=== PATIENT | male | born 1980 | race Hispanic/Latino ===

== ENCOUNTER 2017-07-05 15:01 | Emergency (ER) | payer SELFPAY ==
[~2017-07-05] VITALS: Ht 160 cm; Wt 106.0 kg
[~2017-07-05 15:01] MED LIST: NO HOME MEDS
[2017-07-05 16:19] LABS: ALBUMIN 4.5 g/dL (3.2-5.0); ALKALINE PHOSPHATASE 91 u/l (38-126); ANION GAP 17 (6-22 (CALC)); BILIRUBIN, TOTAL 0.3 mg/dL (0.0-1.4); BUN 14 mg/dL (9-20); BUN/CREATININE RATIO 13 (12-20 (CALC)); CARBON DIOXIDE 24 mmol/l (22-30); CHLORIDE 108 mmol/l (95-108); CREATININE 1.1 mg/dL (0.7-1.3); GFR > 60 ML/MIN (>=60 (CALC)); GFR FOR AFR.AMER. > 60 ML/MIN (>=60 (CALC)); LIPASE 98 u/l (23-300); POTASSIUM 3.6 mmol/l (3.5-5.1); SGOT/AST 24 u/l (17-59); SGPT/ALT 30 u/l (21-72); SODIUM 145 mmol/l (137-146); TOTAL PROTEIN 7.2 g/dL (6.3-8.2)
[2017-07-05] MEDS ORDERED: PROTONIX40 MG PO (18:17)
[2017-07-05 18:43] VITALS: BP 113/57
[2017-07-05 22:26] LABS: HEMATOCRIT 45.1 % (39.0-50.0); HEMOGLOBIN 15.2 g/dl (14.0-18.0); IMMATURE GRANULOCYTES 0.5 % (0.0-1.0); MEAN CELL VOLUME 90.2 fL CALC (80.0-100.0); MEAN CORPUSCULAR HGB 30.4 pG CALC (26.0-32.0); MEAN CORPUSCULAR HGB CONC 33.7 g/L CALC (32.0-36.0); NEUT# 3.36 thou/uL (1.82-7.42); RED CELL DISTRI WIDTH 12.4 % (11.5-15.5)
== END 2017-07-05 18:43 | disposition home or self-care (01) | DRG 313 ==
LOC: ED 15:01
PROVIDERS: Emergency Medicine
DX: R07.89 Other chest pain (principal)

== ENCOUNTER 2018-05-30 14:11 | Emergency (ER) | payer BC ==
[~2018-05-30] VITALS: Ht 160 cm; Wt 113.6 kg
[~2018-05-30 14:11] MED LIST changes: +PROTONIX40 MG PO
[2018-05-30] MEDS ORDERED: OMNICEF300 M1 PO ×2 (15:40)
[2018-05-30] MEDS ORDERED: BACTROBAN TOP (15:40)
[2018-05-30] MEDS ORDERED: BACTRIM DS1 TAB PO (15:40)
[2018-05-30 15:47] VITALS: BP 129/74
== END 2018-05-30 15:47 | disposition home or self-care (01) | DRG 156 ==
LOC: ED 14:11
DX: J34.0 Abscess, furuncle and carbuncle of nose (principal); B96.20 Unspecified Escherichia coli [E. coli] as the cause of diseases classified elsewhere; B95.62 Methicillin resistant Staphylococcus aureus infection as the cause of diseases classified elsewhere

== ENCOUNTER 2018-05-31 17:16 | Emergency (ER) | payer BC ==
[~2018-05-31] VITALS: Ht 160 cm; Wt 120.0 kg
[~2018-05-31 17:16] MED LIST changes: +BACTRIM DS1 TAB PO; +BACTROBAN TOP; +OMNICEF300 M1 PO
[2018-05-31 18:20] VITALS: BP 141/86
== END 2018-05-31 18:20 | disposition home or self-care (01) | DRG 951 ==
LOC: ED 17:16
DX: Z48.01 Encounter for change or removal of surgical wound dressing (principal)

== ENCOUNTER 2021-02-02 18:43 | Inpatient (IN) | payer OTHER ==
[~2021-02-02] VITALS: Ht 152.4 cm; Wt 105.5 kg
--- NOTE | 2021-02-02 18:45 | NUR ---
PT TO ROOM VIA EMS
[2021-02-02 19:20] LABS: HEMOGLOBIN 13.4 g/dl (14.0-18.0); IMMATURE GRANULOCYTES 0.6 % (0.0-5.0); MEAN CELL VOLUME 87.3 fL CALC (80.0-100.0); MEAN CORPUSCULAR HGB 30.5 pG CALC (26.0-32.0); MEAN CORPUSCULAR HGB CONC 34.9 g/dL CAL (32.0-36.0); NEUT# 3.82 thou/uL (1.82-7.42); RED BLOOD COUNT 4.4 mill/uL (4.70-6.10); RED CELL DISTRI WIDTH 12.1 % (11.5-15.5)
[2021-02-02 19:25] LABS: HEMATOCRIT 38.4 % (39.0-50.0)
[2021-02-02 19:38] LABS: ALBUMIN 3.8 g/dL (3.2-5.0); ALKALINE PHOSPHATASE 94 u/l (38-126); BUN 12 mg/dL (9-20); BUN/CREATININE RATIO 16 (12-20 (CALC)); CARBON DIOXIDE 25 mmol/l (22-30); CHLORIDE 97 mmol/l (95-108); CREATININE 0.7 mg/dL (0.7-1.3); GFR > 60 ML/MIN (>=60 (CALC)); GFR FOR AFR.AMER. > 60 ML/MIN (>=60 (CALC)); LIPASE 239 u/l (23-300); POTASSIUM 3.7 mmol/l (3.5-5.1); TOTAL PROTEIN 7.2 g/dL (6.3-8.2)
[2021-02-02 19:42] LABS: D-DIMER 0.22 mg/L (0.19-0.60)
[2021-02-02 19:47] LABS: ACT PARTIAL THROMBO TIME 69.7 SECONDS (20.0-32.5); ANION GAP 12 (6-22 (CALC)); BILIRUBIN, TOTAL 1.3 mg/dL (0.0-1.4); INTERNATIONAL NORMALIZED RATIO 1.9 RATIO (0.7-1.3); PROTHROMBIN TIME 19.5 SECONDS (9.0-12.5); SODIUM 130 mmol/l (137-146)
[2021-02-02 19:48] LABS: SGOT/AST 142 u/l (17-59)
--- NOTE | 2021-02-02 21:23 | NUR ---
Reassessment of patient completed. No distress noted.
--- NOTE | 2021-02-02 23:14 | NUR ---
PT RESTING. FAMILY OUTSIDE FOR UPDATE. UPDATE GIVEN TO PACHECO AND MOTHER.
[2021-02-03] VITALS (13 sets, daily range): BP systolic 103–154; BP diastolic 61–74
--- NOTE | 2021-02-03 00:30 | NUR ---
O2 SAT DROPPED TO 89-90 ON 4 LPM NC. PLACED ON 6 LPM NC.
--- NOTE | 2021-02-03 00:50 | NUR ---
PLACED ON HIGH FLOW NC BY R/T
--- NOTE | 2021-02-03 02:47 | NUR ---
PT WAS BACK AT 95 % AFTER BEING PLACED ON HIGH FLOW NC @ 10 LPM . NOW SATS DOWN TO 89-90 SO HF NC INCREASED TO 12 LPM.
[2021-02-03 04:56] LABS: IMMATURE GRANULOCYTES 0.4 % (0.0-5.0); MEAN CELL VOLUME 88.7 fL CALC (80.0-100.0); MEAN CORPUSCULAR HGB 30.5 pG CALC (26.0-32.0); MEAN CORPUSCULAR HGB CONC 34.4 g/dL CAL (32.0-36.0); NEUT# 3.78 thou/uL (1.82-7.42); RED BLOOD COUNT 5.12 mill/uL (4.70-6.10); RED CELL DISTRI WIDTH 12.3 % (11.5-15.5)
[2021-02-03 04:57] LABS: HEMATOCRIT 45.4 % (39.0-50.0); HEMOGLOBIN 15.6 g/dl (14.0-18.0)
[2021-02-03 05:24] LABS: ALBUMIN 3.7 g/dL (3.2-5.0); ALKALINE PHOSPHATASE 105 u/l (38-126); ANION GAP 16 (6-22 (CALC)); BILIRUBIN, TOTAL 1.2 mg/dL (0.0-1.4); BUN 12 mg/dL (9-20); BUN/CREATININE RATIO 18 (12-20 (CALC)); C-REACTIVE PROTEIN 8.9 mg/dL (0-0.9); CARBON DIOXIDE 23 mmol/l (22-30); CHLORIDE 100 mmol/l (95-108); CREATININE 0.7 mg/dL (0.7-1.3); GFR > 60 ML/MIN (>=60 (CALC)); GFR FOR AFR.AMER. > 60 ML/MIN (>=60 (CALC)); POTASSIUM 4.3 mmol/l (3.5-5.1); SGOT/AST 133 u/l (17-59); SODIUM 134 mmol/l (137-146)
--- NOTE | 2021-02-03 05:30 | NUR ---
PT UP TO BS TO VOID. RESP FAST. [facility]ED TO [facility]. PT ENCOURAGED TO LAY ON BELLY TO BREATHE.
--- NOTE | 2021-02-03 07:20 | NUR ---
PT NOTED SITTING UP IN BED. DIAPHORETIC, AFEBRILE. ALERT AND ORIENTED X4. O2 SAT 91% ON 12L/M VIA HIGH FLOW. PT DENIES ANY PAIN OR DISCOMFORT. SET UP FOR BREAKFAST. ENCOURAGED AND EDUCATED ON PRONING. CALL LIGHT WITHIN REACH. WILL CONTINUE TO MONITOR.
--- NOTE | 2021-02-03 08:08 | NUR ---
PT SATURATION NOTED TO BE 82% ON MONITOR. UPON ENTERING ROOM PT NOT CURRENTLY WEARING O2. EDUCATED AT THIS TIME. SAT UP TO 86% SLOWLY. PT STATES HE IS DONE EATING. CONSUMED LESS THAN 25%. ASSISTED PT INTO PRONE POSITION AT THIS TIME O2 INCREASED TO 15L/M VIA HIGH FLOW. WILL CONTINUE TO MONITOR.
--- NOTE | 2021-02-03 09:29 | NUR ---
PT RESTING IN PRONE POSITION CURRENT SAT 95% ON 15L/M VIA HIGH FLOW. NO APPARENT DISTRESS NOTED. RESPIRATION EVEN AND UNLABORED. CALL LIGHT WITHIN REACH. WILL CONTINUE TO MONITOR.
--- NOTE | 2021-02-03 12:11 | NUR ---
PT WANTING TO REST ON BACK DUE TO BACK DISCOMFORT. ASSISTED PT WITH REPOSITIONING. AFEBRILE AT THIS TIME. PT APPEARS SOB WITH EXERTION. SATS DOWN FROM 95% TO 88%. ENCOURAGED DEEP BREATHING. PT NOT INTERESTED IN EATING LUNCH AT THIS TIME. CALL LIGHT WITHIN REACH. WILL CONTINUE TO MONITOR.
--- NOTE | 2021-02-03 12:54 | NUR ---
PT RESTING IN BED WITH EYES CLOSED. RESPIRATIONS EVEN AND UNLABORED. 02 SAT 93% ON 15L/M VIA HIGH FLOW NC. CALL LIGHT WITHIN REACH. WILL CONTINUE TO MONITOR.
--- NOTE | 2021-02-03 14:56 | NUR ---
PT RESTING IN BED ON LEFT SIDE. VSS. NO APPARENT DISTRESS NOTED. SAT 96% ON 15L/M VIA HIGH FLOW NC. CALL LIGHT WITHIN REACH. WILL CONTINUE TO MONITOR.
--- NOTE | 2021-02-03 16:41 | NUR ---
PT RESTING IN BED IN SUPINE POSITION ON CELL PHONE. NO APPARENT DISTRESS NOTED. O2 SAT 90% ON 15L/M VIA HIGH FLOW NC. CALL LIGHT WITHIN REACH. WILL CONTINUE TO MONITOR.
--- NOTE | 2021-02-03 17:11 | NUR ---
NOTIFIED PHYSICIAN OF NO VOID NOTED SINCE THIS AM AND LIMITED PO INTAKE. IVF ORDER RECEIVED AT THIS TIME. ORDER FAXED TO PHARMACY.
[2021-02-04] VITALS (9 sets, daily range): BP systolic 101–145; BP diastolic 53–79
[2021-02-04 04:55] LABS: HEMATOCRIT 43.7 % (39.0-50.0); HEMOGLOBIN 14.9 g/dl (14.0-18.0); IMMATURE GRANULOCYTES 0.5 % (0.0-5.0); MEAN CELL VOLUME 88.6 fL CALC (80.0-100.0); MEAN CORPUSCULAR HGB 30.2 pG CALC (26.0-32.0); MEAN CORPUSCULAR HGB CONC 34.1 g/dL CAL (32.0-36.0); NEUT# 6.46 thou/uL (1.82-7.42); RED BLOOD COUNT 4.93 mill/uL (4.70-6.10); RED CELL DISTRI WIDTH 12.4 % (11.5-15.5)
[2021-02-04 05:10] LABS: ALBUMIN 3.4 g/dL (3.2-5.0); ALKALINE PHOSPHATASE 136 u/l (38-126); ANION GAP 14 (6-22 (CALC)); BUN 15 mg/dL (9-20); BUN/CREATININE RATIO 23 (12-20 (CALC)); CARBON DIOXIDE 21 mmol/l (22-30); CHLORIDE 106 mmol/l (95-108); CREATININE 0.6 mg/dL (0.7-1.3); GFR > 60 ML/MIN (>=60 (CALC)); GFR FOR AFR.AMER. > 60 ML/MIN (>=60 (CALC)); POTASSIUM 3.8 mmol/l (3.5-5.1); SGOT/AST 130 u/l (17-59); SODIUM 137 mmol/l (137-146); TOTAL PROTEIN 6.3 g/dL (6.3-8.2)
[2021-02-04 05:15] LABS: BILIRUBIN, TOTAL 0.7 mg/dL (0.0-1.4)
--- NOTE | 2021-02-04 07:00 | NUR ---
RECEIVED BEDSIDE REPORT FROM VIRGIE SIM. CALL LIGHT WITHIN REACH.
--- NOTE | 2021-02-04 10:00 | NUR ---
PT RESTING WITH EYES CLOSED, AWAKENS EASILY.
--- NOTE | 2021-02-04 10:18 | NUR ---
DR KAPADIA AT BEDSIDE TO DISCUSS POC.
--- NOTE | 2021-02-04 11:55 | NUR ---
PT RESTING IN PRONE POSITION. SPO2 95% ON O2 15L VIA NC.
--- NOTE | 2021-02-04 14:00 | NUR ---
RESTING ON LEFT SIDE, RESPS EVEN AND UNLABORED ON O2 AT 15L, DENIES NEEDS AT THIS TIME.
--- NOTE | 2021-02-04 17:00 | NUR ---
ASSISTED TO BEDSIDE CHAIR, O2 CONTINUES AT 15L. CALL LIGHT WITHIN REACH.
--- NOTE | 2021-02-04 20:00 | NUR ---
NO APPARENT DISTRESS. RESTING QUIETLY.
[2021-02-05] VITALS (15 sets, daily range): BP systolic 101–154; BP diastolic 54–92
--- NOTE | 2021-02-05 | NUR ---
RESTING QUIETLY.NAD.
--- NOTE | 2021-02-05 00:34 | NUR ---
PT PRONE RESTING WELL.
--- NOTE | 2021-02-05 02:30 | NUR ---
RESTING QUIETLY NAD.
[2021-02-05 05:58] LABS: ALBUMIN 3.3 g/dL (3.2-5.0); ALKALINE PHOSPHATASE 132 u/l (38-126); ANION GAP 14 (6-22 (CALC)); BILIRUBIN, TOTAL 0.9 mg/dL (0.0-1.4); BUN 15 mg/dL (9-20); BUN/CREATININE RATIO 26 (12-20 (CALC)); C-REACTIVE PROTEIN 4.6 mg/dL (0-0.9); CARBON DIOXIDE 20 mmol/l (22-30); CHLORIDE 109 mmol/l (95-108); CREATININE 0.6 mg/dL (0.7-1.3); GFR > 60 ML/MIN (>=60 (CALC)); GFR FOR AFR.AMER. > 60 ML/MIN (>=60 (CALC)); POTASSIUM 4.3 mmol/l (3.5-5.1); SGOT/AST 97 u/l (17-59); SODIUM 138 mmol/l (137-146); TOTAL PROTEIN 6.2 g/dL (6.3-8.2)
--- NOTE | 2021-02-05 06:00 | NUR ---
SLEEPING. SAO2 TRENDING DOWN.
[2021-02-05 06:39] LABS: IMMATURE GRANULOCYTES 0.9 % (0.0-5.0); MEAN CELL VOLUME 91.2 fL CALC (80.0-100.0); MEAN CORPUSCULAR HGB 30.1 pG CALC (26.0-32.0); NEUT# 5.7 thou/uL (1.82-7.42); RED BLOOD COUNT 6.01 mill/uL (4.70-6.10); RED CELL DISTRI WIDTH 12.4 % (11.5-15.5)
[2021-02-05 06:40] LABS: HEMATOCRIT 54.8 % (39.0-50.0); HEMOGLOBIN 18.1 g/dl (14.0-18.0)
--- NOTE | 2021-02-05 07:51 | NUR ---
REPORT CALLED TO RONEY MARES.
--- NOTE | 2021-02-05 08:45 | NUR ---
PATEINT ARRIVED UP TO ICU BED 3 AT THIS TIME. PATIENT IS ALERT AND ORIENTED AT THIS TIME. PATIENT ARRIVED ON 15L HIGH FLOW AND SPO2 IS 86%. DR. GASPAR ON UNIT AT THIS TIME AND ORDERED PATIENT TO BE PLACED ON VAPO-THERM AT THIS TIME. RESPIRATORY PLACED PATIENT ON VAPO-THERM AT THIS TIME. PATIENT ALEXUS SHORTNESS OF BREATH LUNG WATERMAN ARE DIMINISHED IN ALL WATERMAN. PATIENTS VITALS ON ARRIVAL WERE T. 98.9 HR 90 S/R BP 101/66 R. 22 SPO2 86%. SIDERAILS ARE UP CALL LIGHT WITHIN REACH. WILL CONTINUE TO MONITOR.
--- NOTE | 2021-02-05 09:38 | NUR ---
PATIENT PLACED ON VAPO THERM AT THIS TIME VAPO-THERM SETTINGS ARE FOLLOWS: 30L/100% SPO2 AT THIS TIME IS 100% PATIETNT ONLY COMPLAINT AT THIS TIME IS A HEADACHE AND 650MG OF TYLENOL GIVEN
--- NOTE | 2021-02-05 10:31 | NUR ---
PATIENT'S HEADACHE RE-EVALUATED AT THIS TIME AND PATIENT STATES HIS PAIN IS NOW A "2" OUT OF THE 0-10 PAIN SCALE AND THE 650MG OF TYLENOL HELP. WILL CONTINUE TO MORITOR.
--- NOTE | 2021-02-05 10:58 | NUR ---
Pt screened, given high oxygen demands, patient could benefit from an ST consultation as he is at an increased risk for aspiration. Please consult if medical team agrees.
--- NOTE | 2021-02-05 12:00 | NUR ---
PATIENT UP IN CHAIR AT THIS TIME. PATIENT REMAINS ON VAPO-THERM WATCH AND CLOCK REPAIR CLERK ON READING ST/ HR 100 SPO2 AT THIS TIME IS 89% SIDERAILS ARE UP X2 WILL CONTINUE TO MONITOR.
--- NOTE | 2021-02-05 14:02 | NUR ---
PATIENT REMAINS UP IN CHAIR AT THIS TIME. PATIENT REMAINS ON VAPO-THERM SETTING UNCHAGED FROM PREVIOUS NOTE. SPO2 IS CURRENTLY 95% AT THIS TIME. CALL LIGHT IS WITHIN REACH.
--- NOTE | 2021-02-05 14:55 | NUR ---
PATIENT ASSISTED BACK TO BED AT THIS TIME. SIDERAILS ARE UP CALL LIGHT WITHIN REACH.
--- NOTE | 2021-02-05 15:54 | NUR ---
PATIENT RESTING IN BED AT THIS TIME. PATIENT DENIES SHORTNESS OF BREATH AND VAPO-THERM IS SET AT 30L / 100% AND PATIENTS SPO2 CURRENTLY IS 92%. PATIENT HAS DENIED ANY COUGHING AT THIS TIME. SIDERAILS ARE UP CALL LIGHT IS WITHIN REACH. WILL CONTIUE TO MONITOR.
--- NOTE | 2021-02-05 19:15 | NUR ---
REPORT RECIVED FROM DAY SHIFT NURSE, ASSUMEND CARE
--- NOTE | 2021-02-05 21:00 | NUR ---
PT RESTING IN BED AT THIS TIME. PT WAS UP A LITTLWE EARLIER TO GO TO THE TOILET, MODERATE LOOSE BM NOTED AFTER TOILETING. PT REMAINS ON VAPOTHERM, 30L/100%. IV TO RIGHT HAND INFILTRATED, NEW IV STARTED TO RAC, RUNING NS @ 75ML/HR
--- NOTE | 2021-02-05 22:00 | NUR ---
PT REMAINS IN BED WATHCHING TELEVISION. NO CHANGES IN OXYGENATION AT THIS TIME. BREATHING SLIGHTLY SHALLOW AND NON-LABORED. NO COMPLAINTS VOICED, NO S/S OF DISTRESS. SAFETY PRECAUTIONS REMAIN IN PLACE, WILL MONITOR
[2021-02-06] VITALS (16 sets, daily range): BP systolic 114–163; BP diastolic 61–80
--- NOTE | 2021-02-06 | NUR ---
PT CONTINUES TO REST QUIETLY. IV ABT INFUSED PER ORDER. IV SITE TO RAC REMAINS IN PLACE AND FLUSHES EASILY. NS CONTINUES AT 75ML/HR. PT TOLERATED WELL. SAFETY PRECAUTIONS REMAIN IN PLACE, WILL MONITOR
--- NOTE | 2021-02-06 02:00 | NUR ---
PTR RESTING IN BED AT THIS TIME. BREATHING EVEN AND UNLABORED. NO S/S OF DISTRESS. VSS FOR PT. O2 SATURATIONS FLUXATING FROM 91%-94% ON VAPOTHERM 30L/100%. PT TOLERATING WELL. NO S/S OF DISTRESS NOTED. SAFETY PRECAUTIONS REMAIN IN PLACE, MBED IN LOW POASITION, FREQ USED ITEMS WITHIN REACH, AND CALL LIGHT WITHIN REACH. WILL MONITOR
--- NOTE | 2021-02-06 04:00 | NUR ---
PT RESTRING COMFORTABLY IN BED WITH EYES CLOSED. BREATHING EVEN AND UNLABORED. O2 SATURATION 92%. NO COMPLAINTS VOICED AT THIS TIME. SAFETY PRECAUTIONS REMAIN IN PLACE, WILL MONITOR
[2021-02-06 05:55] LABS: IMMATURE GRANULOCYTES 0.6 % (0.0-5.0); MEAN CELL VOLUME 90.8 fL CALC (80.0-100.0); MEAN CORPUSCULAR HGB 30.7 pG CALC (26.0-32.0); MEAN CORPUSCULAR HGB CONC 33.8 g/dL CAL (32.0-36.0); NEUT# 8.25 thou/uL (1.82-7.42); RED BLOOD COUNT 4.69 mill/uL (4.70-6.10); RED CELL DISTRI WIDTH 12.3 % (11.5-15.5)
[2021-02-06 05:56] LABS: HEMATOCRIT 42.6 % (39.0-50.0); HEMOGLOBIN 14.4 g/dl (14.0-18.0)
--- NOTE | 2021-02-06 06:08 | NUR ---
PT RESTING QUIETLY, REQUESTED AND WAS GIVEN TYLENOL FOR A HEADACHE. TYLENOL EFFECTIVE. BREATHING EVEN AND UNLABORED. NO CONCERNS VOICED AT THIS TIME. NO S/S OF DISTRESS. SAFETY PRECAUTIONS CONTINUE. WILL CONTINUE TO MONITOR
[2021-02-06 06:12] LABS: ALKALINE PHOSPHATASE 123 u/l (38-126); ANION GAP 13 (6-22 (CALC)); BUN 12 mg/dL (9-20); BUN/CREATININE RATIO 21 (12-20 (CALC)); C-REACTIVE PROTEIN 6.3 mg/dL (0-0.9); CARBON DIOXIDE 21 mmol/l (22-30); CHLORIDE 107 mmol/l (95-108); CREATININE 0.6 mg/dL (0.7-1.3); GFR > 60 ML/MIN (>=60 (CALC)); GFR FOR AFR.AMER. > 60 ML/MIN (>=60 (CALC)); POTASSIUM 4.2 mmol/l (3.5-5.1); SGOT/AST 88 u/l (17-59); SODIUM 136 mmol/l (137-146); TOTAL PROTEIN 5.7 g/dL (6.3-8.2)
--- NOTE | 2021-02-06 08:15 | NUR ---
PATIENT LAYING IN BED AT THIS TIME. PATIENT DENEIS ANY PAIN THIS AM AND REMAINS ON VAPO-THERM AT 30L/100%. PATIENT LUNG WATERMAN ARE DIMINISHED AT THIS TIME. PATIENT DENIES ANY SHORTNESS OF BREATH AT THIS TIME AND HAS BEEN ENCOURGED TO DEEP BREATH. PATIENT GIVEN AN INCENTIVE SPIROMOTER AND EDUCATED ON USE AND BENEFITS. PATIENT DEMONSTRATED AND VERBALIZES UNDERSTANDING. PATIENT EMERGENCY VETERINARY TECHNICIAN READING CURRENTLY: SR/HR OF 90 AND SPO2 IS 90%. SIDERAILS ARE UP X 2 CALL LIGHT IS WITHIN REACH AT THIS TIME.
--- NOTE | 2021-02-06 09:37 | NUR ---
PT screen Patient is screened for PT intervention and no needs are identified at this time
--- NOTE | 2021-02-06 09:54 | NUR ---
PATIENT LAYING IN PRONE POSITION AT THIS TIME. PATIENT DENEIS ANY SHORTNESS OF BREATH.
--- NOTE | 2021-02-06 10:00 | NUR ---
PATIENT REMAINS IN THE PRONE POSITION AT THIS TIME. PATIENT ENCOURAGED TO TAKE IN DEEP BREATHS AND TO USE INCENTIVE SPIROMETER WHEN NOT PRONING. SIDERAILS ARE UP CALL LIGHT IS WITHIN REACH.
--- NOTE | 2021-02-06 12:00 | NUR ---
PATIENT SITTING UP IN BED EATING LUNCH AT THIS TIME. PATIENT EXHIBITING EXECERTIONAL SHORTNESS OF BREATH. PATIENT VITAL SIGNS AND PLANT OPERATIONS VICE PRESIDENT NOTED IN INTERVENTIONS. PATIENT REMAINS ON VAPO-THERM AND SETTINGS ARE UNCHANGED FROM PREVIOUS NOTE. PATINET IS USING INCENTIVE SPIROMETER AND SIDERAILS ARE UP CALL LIGHT WITHIN REACH.
--- NOTE | 2021-02-06 13:24 | NUR ---
O2 SAT 87%. INCREASED FLOW TO 40L.
--- NOTE | 2021-02-06 14:00 | NUR ---
PATIENT RESTING IN BED AT THIS THIS TIME WITH EYES CLOSED. RESPIRATIONS ARE NON-LABORED AND SHALLOW HEART RATE AT THIS TIME IS 74 BEATS/MIN. AND PATIENT IS ON VAPO THERM 40L/100%. PATIENTS SPO2 IS CURRENTLY 94% AT THIS TIME. SIDERAILS ARE UP AND CALL LIGHT IS WITHIN REACH.
--- NOTE | 2021-02-06 16:15 | NUR ---
PATIENT ASSITED UP TO BSC AT THIS TIME. PATIENTS EXHIBITS EXCERTIONAL SHORTNESS OF BREATH AND PULSE OX DROPPED DOWN TO 86 % PATIENT REMAINS ON VAPO=THERM AT SETTING OF 40L/100% PATEINT CHAMP PAIN CALL LIGHT IS WITHIN REACH WILL CONTINUE TO MONITOR.
--- NOTE | 2021-02-06 18:27 | NUR ---
PATIENT RESTING IN BED EATING DINNER AT THIS TIME DENEIS ANY NEEDS SIDERAILS UP CALL LIGHT WITHIN REACH. HR 80 S/R
--- NOTE | 2021-02-06 20:17 | NUR ---
PATIENT AWAKE AND ALERT. ASSESSMENT AND VITALS TAKEN AND CHARTED. NO CONCERNS OR COMPLAINTS AT THIS TIME
[2021-02-07] VITALS (14 sets, daily range): BP systolic 97–146; BP diastolic 57–92
--- NOTE | 2021-02-07 02:12 | NUR ---
NO STATUS CHANGE TO REPORT. VITALS REMAIN STABLE
--- NOTE | 2021-02-07 06:00 | NUR ---
PATIENT AWAKE AND IN PRONE POSITION. NO STATUS CHANGE TO REPORT
[2021-02-07 06:11] LABS: HEMOGLOBIN 14.3 g/dl (14.0-18.0); IMMATURE GRANULOCYTES 1.3 % (0.0-5.0); MEAN CORPUSCULAR HGB 30.3 pG CALC (26.0-32.0); NEUT# 7.88 thou/uL (1.82-7.42); RED BLOOD COUNT 4.72 mill/uL (4.70-6.10); RED CELL DISTRI WIDTH 12.2 % (11.5-15.5)
[2021-02-07 06:36] LABS: ALKALINE PHOSPHATASE 128 u/l (38-126); ANION GAP 14 (6-22 (CALC)); BUN 12 mg/dL (9-20); BUN/CREATININE RATIO 19 (12-20 (CALC)); C-REACTIVE PROTEIN 6.9 mg/dL (0-0.9); CARBON DIOXIDE 20 mmol/l (22-30); CHLORIDE 106 mmol/l (95-108); CREATININE 0.6 mg/dL (0.7-1.3); GFR > 60 ML/MIN (>=60 (CALC)); GFR FOR AFR.AMER. > 60 ML/MIN (>=60 (CALC)); POTASSIUM 4.2 mmol/l (3.5-5.1); SGOT/AST 84 u/l (17-59); SODIUM 135 mmol/l (137-146); TOTAL PROTEIN 5.7 g/dL (6.3-8.2)
--- NOTE | 2021-02-07 07:00 | NUR ---
PATIENT LAYING IN PRONE POSITION AT THIS TIME. PATIENT LUNG WATERMAN ASSESSED AT THIS TIME AND ARE CLEAR IN THE UPPER WATERMAN AND DIMINISHED IN MIDDLE AND LOWER FILEDS. PATIENT REMAINS ON VAPO-THERM AND SETTINGS AT THIS TIME ARE; 40L/100% SPO2 CURRRENTLY IS 94%. PATIENT ASSESSMENT DONE SEE INTERVENTIONS. PATIENT DENIES ANY PAIN AT THIS TIME AND OR SHORTNESS OF BREATH. NO COUGH NOTED AT THIS TIME AND PATIENT DENIES ANY COUGH. PATIENTS SIDERAILS ARE UP CALL LIGHT IS WITHIN REACH AT THIS TIME. PATIENT HAS NO NOTED EDEMA.
--- NOTE | 2021-02-07 08:02 | NUR ---
PT C NAD. HR ELEVATED. RR ELEVATED. SPO2 MID 80S. PT WILL NOT PRONE. METAL FABRICATOR WELDER TO MONITOR.
--- NOTE | 2021-02-07 08:50 | NUR ---
PATIENT SPO2 AT THIS TIME WAS 87% PATIETN PRONED AT THIS TIME AND SPO2 MOVED TO 91%. PATIENT ADVISED TO PRONE AND USE HIS INCENTIVE SPIROMETER. DR. GASPAR IN TO SEE PATIENT AT THIS TIME.
--- NOTE | 2021-02-07 09:32 | NUR ---
PATIENT UP TO BEDSIDE SCALE AT THIS TIME. STANDING SCALE WEIGHT IS 105.45KG'S AT THIS TIME.
--- NOTE | 2021-02-07 09:57 | NUR ---
PATIENT IN PRONE POSITION AT THIS TIME AND SPO2 IS CURRENTLY 92%. DR. GASPAR IN TO SEE PATIENT AND D/C IV FLUIDS AT THIS TIME. PATIENT WILL REMAIN SALINE LOCKED. CARDIAC MONITIOR SHOWING PATIENT IN S/R AND HR OF 82. SIDERAILS ARE UP X 2 CALL LIGHT IS WITHIIN REACH.
--- NOTE | 2021-02-07 10:16 | NUR ---
NO CHANGES AT THIS TIME. PT PRONE. RIBBON SWEATBAND OPERATOR TO MONITOR.
--- NOTE | 2021-02-07 12:05 | NUR ---
PATIENT SITTING UP IN BED EATING LUNCH AT THIS TIME. PATIENT CARDIAC HR IS ST/100 AT THIS TIME. PATIENTS SPO2 IS 89% AND VAPO-THERM IS 40L/100% AT THIS TIME. PATIENT STATES HE IS NOT HAVING ISSUES WITH SHORTNESS OF BREATH. PATIENT RECHECK OF TEMP IS 98.3 SIDERAILS ARE UP CALL LIGHT IS NEAR PATEINT ENCOURAGED TO CONTINUE USE OF INCENTIVE SPIROMETER.
--- NOTE | 2021-02-07 14:00 | NUR ---
PATIENT REMAINS IN THE PRONE POSTITION AT THIS TIME. HR IS 71 AND SPO2 IS 92% ON 40L/100% VAPO-THERM. CALL LIGHT IS WITHIN REACH AND SIDERAILS ARE UP .
--- NOTE | 2021-02-07 16:00 | NUR ---
PATIENT REMAINS LAYING IN PRONE POSITION AT THIS TIME. SPO2 CURRENTLY IS 92% ON VAPO-THERM AT THIS TIME. PATIENT DENEIS ANY NEEDS SIDERAILS ARE UP CALL LIGHT IS WITHIN REACH.
--- NOTE | 2021-02-07 17:39 | NUR ---
PATIENT RESTING IN BED AT THIS TIME IN PRONE POSITION. SPO2 AT THIS TIME IS 94%. DENEIS ANY NEEDS. CALL LIGHT IS WITHIN REACH AT THIS TIME. VAPO-THERM REMAINS ON SETTINGS OF 40L/100%
--- NOTE | 2021-02-07 18:55 | NUR ---
RECEIVED REPORT FROM VISHNU SIM.
--- NOTE | 2021-02-07 20:00 | NUR ---
PATIENT RESTING IN BED SUPINE. VAPOTHERM IN PLACE. PATIENT IS ALERT AND ORIENTED. DENIES PAIN. RESPIRATINS EVEN AND UNLABORED. VAD S/L. ON TELEMETRY ST. HR REG. ASSESSMENT COMPLETED AND CHARTED. BED IN LOW POSITION. CALL LIGHT WITHIN REACH.
--- NOTE | 2021-02-07 21:20 | NUR ---
PATIENT RESTING QUIETLY. NO ACUTE DISTRESS. LOVENOX SQ, ZITHROMAX IV, AND SONATA PO GIVEN.
--- NOTE | 2021-02-07 23:48 | NUR ---
IV ROCEPHIN INFUSING. PATIENT UP TO BSC WITH STANDBY ASSIST. FALL PRECAUTIONS IN PLACE.
[2021-02-08] VITALS (16 sets, daily range): BP systolic 106–159; BP diastolic 58–74
--- NOTE | 2021-02-08 02:00 | NUR ---
RESTING PRONE. NO COMPLAINTS. CONTINUES ON VAPOTHERM.
--- NOTE | 2021-02-08 03:35 | NUR ---
PATIENT OXYGEN SATURATION MAINTAINING 88-89% ON VAPOTHERM. VENTOLIN GIVEN. NO ACUTE DISTRESS OBSERVED. PATIENT IS PRONING. BED IN LOW POSITION. CALL LIGHT WITHIN REACH.
[2021-02-08 05:39] LABS: HEMATOCRIT 42.8 % (39.0-50.0); HEMOGLOBIN 14.6 g/dl (14.0-18.0); MEAN CELL VOLUME 88.4 fL CALC (80.0-100.0); MEAN CORPUSCULAR HGB 30.2 pG CALC (26.0-32.0); MEAN CORPUSCULAR HGB CONC 34.1 g/dL CAL (32.0-36.0); RED BLOOD COUNT 4.84 mill/uL (4.70-6.10); RED CELL DISTRI WIDTH 12.2 % (11.5-15.5)
--- NOTE | 2021-02-08 05:44 | NUR ---
PATIENT OXYGEN SATURATION 81%. RT CALLED, RT TO BRING BIPAP FOR PATIENT.
--- NOTE | 2021-02-08 05:48 | NUR ---
RT AT BEDSIDE.
[2021-02-08 05:58] LABS: ANION GAP 14 (6-22 (CALC)); BUN 13 mg/dL (9-20); BUN/CREATININE RATIO 22 (12-20 (CALC)); CARBON DIOXIDE 19 mmol/l (22-30); CHLORIDE 106 mmol/l (95-108); CREATININE 0.6 mg/dL (0.7-1.3); GFR > 60 ML/MIN (>=60 (CALC)); GFR FOR AFR.AMER. > 60 ML/MIN (>=60 (CALC)); POTASSIUM 4.2 mmol/l (3.5-5.1); SODIUM 135 mmol/l (137-146)
--- NOTE | 2021-02-08 07:06 | NUR ---
CHANGED MODE AND PARAMTERS PER PT SPO2/COMFORT/WEANING. PT ERLINDA WELL AT THIS TIME. DRIER TAKE OFF TENDER TO MONITOR.
--- NOTE | 2021-02-08 07:18 | NUR ---
PT LAYING IN BED. A&O X4. ENGLISH SPEAKING ONLY. PT CURRENTLY ON BIPAP, SUSTAINING 92-94%. CLEAR BREATH SOUNDS UPON AUSCULTATION. LATEX FOAM WORKER IN PLACE, CURRENTLY SR 87. ACTIVE BOWEL SOUNDS X4 QUADRANTS. IV HEALTHY AND PATENT. ASSESSMENT COMPLETED. DISCUSSED POC. ISOLATION PRECAUTIONS IN PLACE. NO OTHER NEEDS AT THIS TIME. CALL LIGHT WITHIN REACH.
--- NOTE | 2021-02-08 08:20 | NUR ---
PLACED PT ON NRB C HFNC AT 40LPM/100%. PT ERLINDA WELL AT THIS TIME.
--- NOTE | 2021-02-08 09:24 | NUR ---
DR LIZAMA AT BEDSIDE DISCUSSING POC.
--- NOTE | 2021-02-08 09:43 | NUR ---
EDUCATION GIVEN TO PT REGARDING PRONING AND ITS BENEFITS. PT PLACED IN PRONE POSITION. CONTINUES ON VAPOTHERM 40L 100%; WITH NRB. O2 93% AT THIS TIME. CALL LIGHT PLACED WITHIN REACH.
--- NOTE | 2021-02-08 09:58 | NUR ---
PT ON VAPOTHERM 40L/10%/33 DEGREES. C NRB AND PRONED. PT ERLINDA WELL AT THIS TIME. HOUSE CALLS NURSE TO MONITOR.
--- NOTE | 2021-02-08 11:56 | NUR ---
XANAX GIVEN. PT ATTEMPTING TO EAT LUNCH. NO OTHER NEEDS AT THIS TIME. PT INSTRUCTED TO CALL WHEN HE WAS DONE TO PRONE. CALL LIGHT WITHIN REACH.
--- NOTE | 2021-02-08 13:08 | NUR ---
PT ASSISTED BACK INTO PRONE POSITION. VAPOTHERM AND NRB IN PLACE. O2 93% AT THIS TIME. CALL LIGHT WITHIN REACH.
--- NOTE | 2021-02-08 14:33 | NUR ---
PT REMAINS IN PRONE POSITION. O2 @93%. IV REMAINS HEALTHY AND PATENT, EMDESIVIR INITIATED AT THIS TIME. CALL LIGHT WITHIN REACH.
--- NOTE | 2021-02-08 19:01 | NUR ---
PT ASSISTED BACK INTO BSC, BM NOTED. NO OTHER NEEDS AT THIS TIME. VAPOTHERM REMAINS 40L/ 100% SUSTAINING 91% CALL LIGHT WITHIN REACH.
--- NOTE | 2021-02-08 20:30 | NUR ---
RESTING WITH EYES CLOSED ON ROUNDS. AWAKENS TO NAME. VSS. RESP SHALLOW, LABORED WITH EXERTION. CURRENTLY ON HFNC AND NRB. O2 SATS 89-91% ADVISED PATIENT WE WILL PUT BACK ON VAPOTHERM FOR THE NIGHT. ENCOURAGED TO REST IN PRONE POSITION, HE STATES HE WILL LATER. BREATH SOUNDS CLEAR/DIMINISHED. SL IN LAC WITH SN AT KVO. PRECISION MILLWRIGHT SHOWS SR-ST. DISCUSSED PLAN OF CARE. CALL SHI IN REACH.
--- NOTE | 2021-02-08 22:17 | NUR ---
RESTING WITH EYES CLOSED. RESP REMAIN SHALLOW AND SLT LABORED. O2 SAT 83-84% RT [place] IN TO CHECK ON PATIENT PATIENT PLACED BACK ON CPAP, 12 CM/1OO% FIO2.
[2021-02-09] VITALS (17 sets, daily range): BP systolic 110–164; BP diastolic 70–88
--- NOTE | 2021-02-09 | NUR ---
RESTING QUIETLY. ON CPAP, TOLERATING WELL. O2 SAT 93% SR ON MONITOR.
--- NOTE | 2021-02-09 01:45 | NUR ---
QSSISTED PATIENT UP TO BSC, VOIDED WITH LIQUID BROWN STOOL. PATIENT ATTEMPTED PRONING WHEN RETURNING TO BED, O2 SATS DROPPED WITH PRONING. PATIENT REPOSITIONED ON TO BACK. REMAINS ON CPAP, O2 SAT GRADUALLY PICKED UP TO 93%
--- NOTE | 2021-02-09 04:00 | NUR ---
O2 SATS HAVE MAINTAINED GREATER THAN 90% SINCE GOING ON CPAP EARLIER. VSS.
[2021-02-09 05:33] LABS: HEMATOCRIT 42.7 % (39.0-50.0); HEMOGLOBIN 14.4 g/dl (14.0-18.0); IMMATURE GRANULOCYTES 0.9 % (0.0-5.0); MEAN CORPUSCULAR HGB CONC 33.7 g/dL CAL (32.0-36.0); NEUT# 8.01 thou/uL (1.82-7.42); RED BLOOD COUNT 4.8 mill/uL (4.70-6.10); RED CELL DISTRI WIDTH 12.3 % (11.5-15.5)
[2021-02-09 05:52] LABS: ALBUMIN 2.8 g/dL (3.2-5.0); ALKALINE PHOSPHATASE 110 u/l (38-126); BUN 13 mg/dL (9-20); BUN/CREATININE RATIO 23 (12-20 (CALC)); CHLORIDE 102 mmol/l (95-108); CREATININE 0.6 mg/dL (0.7-1.3); GFR > 60 ML/MIN (>=60 (CALC)); GFR FOR AFR.AMER. > 60 ML/MIN (>=60 (CALC)); POTASSIUM 4.1 mmol/l (3.5-5.1); SGOT/AST 57 u/l (17-59); SODIUM 133 mmol/l (137-146); TOTAL PROTEIN 5.6 g/dL (6.3-8.2)
--- NOTE | 2021-02-09 06:05 | NUR ---
RESTING WITH EYES CLOSED. CONTINUES ON CPAP. VSS. SR ON MONITOR.
[2021-02-09 06:20] LABS: ANION GAP 11 (6-22 (CALC)); BILIRUBIN, TOTAL 0.5 mg/dL (0.0-1.4); C-REACTIVE PROTEIN 15.2 mg/dL (0-0.9); CARBON DIOXIDE 24 mmol/l (22-30)
--- NOTE | 2021-02-09 07:02 | NUR ---
NO CNAGES AT THIS TIME. PT IN BED. NAD. VSS. STEEL PICKLER TO MONITOR.
--- NOTE | 2021-02-09 08:00 | NUR ---
PATIENT IS A/O X3. ABLE TO MAKE NEEDS KNOWN TO STAFF. DOES SPEAK SOME KINYARWANDA MAINLY GERMAN. REQUESTED CPAP TO BE TAKEN OFF TO EAT, INFORMED HIM I WILL PAGE RT AND GET HIM HERE WHEN HE HAS TIME TO BE TAKEN OFF THE MASK AND PLACED ON VAPOTHERM. DENIES PAIN AT THIS TIME. NO ARM DRIFT. VITAL SIGNS ARE STABLE. 3MM PERRLA. CLEAR SPEECH. STRONG EQUAL HAND FORESTRY SUPERVISOR. STRONG PULSES. NO EDEMA PRESENT AT THIS TIME. ACTIVE BOWEL SOUNDS. SAFETY MEASURES IN PLACE. CALL LIGHT IN REACH WILL CONTINUE TO MONITOR PER HOSPITAL'S POLICY.
--- NOTE | 2021-02-09 09:38 | NUR ---
PLACED ON [facility] C NRB FOR BREAKFAAST. ASSISTED C RN TO PLACE PT IN CHAIR. ERLINDA WELL AT THIS TIME. CHECK WRITING MACHINE OPERATOR TO MONITOR.
--- NOTE | 2021-02-09 10:00 | NUR ---
PATIENT IS SITTING UP IN BED ON HIS PHONE. NON REBREATHER PLUS VAPOTHERM IS ON SATS LOW 90'S.
--- NOTE | 2021-02-09 12:00 | NUR ---
PATIENT IS SITTING UP IN CHAIR WITH LUNCH ON SIDE TABLE.
--- NOTE | 2021-02-09 14:00 | NUR ---
PATIENT IS SITTING UP IN CHAIR, VITALS ARE STABLE.
--- NOTE | 2021-02-09 18:23 | NUR ---
PATIENT BACK IN BED LAYING PRONE, O2 SATS 91/92% VAPO AND NON REBREATHER
--- NOTE | 2021-02-09 19:25 | NUR ---
RESTING IN BED WITH EYES CLOSED. REMAINS ON VAPOTHERM 40 L/100% WITH NRB. SR ON MONITOR.
--- NOTE | 2021-02-09 20:45 | NUR ---
PATIENT AWAKE ON ROUNDS. VSS. O2 SAT 88% RESP SHALLOW AND LABORED. BREATH SOUNDS DIMINISHED THROUGHOUT LUNG WATERMAN. PATIENT ANXIOUS. EMOTIONAL SUPPORT AND REASSURANCE PROVIDED. ENCOURAGE TO REST IN PRONE POSITION. IV IN LAC, SITE BENIGN, NS INFUSING AT KVO. FORMWORK CARPENTER SHOWS SR. DISCUSSED PLAN OF CARE. DENIES NEEDS AT THIS TIME. CALL SHI IN REACH. -
--- NOTE | 2021-02-09 22:15 | NUR ---
O2 SAT STAYING IN THE MID 80'S. CALLED RT AND PATIENT PLACED BACK ON CPAP, 12 /100% FIO2. PATIENT RESTING WITHOUT COMPLAINTS. VSS. MONITOR SR.
--- NOTE | 2021-02-09 23:39 | NUR ---
MEDICATED WITH XANAX ORDERED FOR ANXIETY.
[2021-02-10] VITALS (19 sets, daily range): BP systolic 96–150; BP diastolic 59–85
--- NOTE | 2021-02-10 00:15 | NUR ---
RESTING WITH EYES CLOSED. VSS. MONITOR SR. O2 SAT 85-88%
--- NOTE | 2021-02-10 01:15 | NUR ---
O2 SATS DROPPED TO 83-85% PATIENT ATTEMPTED TO PRONE. STATES UNABLE. ASSISTED TO TURN WAY ONTO LEFT SIDE. O2 SAT INCREASED TO 91-93%
--- NOTE | 2021-02-10 02:00 | NUR ---
RESTING QUIETLY ON LEFT SIDE. O2 SAT 92% VSS. SR ON MONITOR. -
--- NOTE | 2021-02-10 03:00 | NUR ---
ASSISTED PATIENT UP TO [facility], VOIDED AND HAD LARGE LIQUID BROWN STOOL.
--- NOTE | 2021-02-10 04:00 | NUR ---
PATENT RESTING QUIETLY IN BED WITH EYES CLOSED. VSS. MONITOR SR.
--- NOTE | 2021-02-10 06:00 | NUR ---
ASLEEP. VSS. CONITNUES ON CPAP, TOLERATING WELL. O2 SAT 92%
--- NOTE | 2021-02-10 08:00 | NUR ---
PATIENT IS A/O X3. 3MM PERRLA. DENIES PAIN AT THIS TIME. WANTS TO SPEAK TO THE DOCTOR. INFORMED THE DOCTOR HE SAID HE WILL CALL THE AFTER HE ROUNDS IN THE ICU. DIMINISHED LUNG SOUNDS. NSR AT THIS TIME. VITALS SIGNS ARE STABLE. CPAP WAS PLACED DURING THE NIGHT WHILE HE IS ASLEEP. STATED HE WANTED TO GET IT OFF TOLD HIM AT BREAK ACTIVE BOWEL SOUNDS. NON TENDER. EQUAL AND STRONG HAND TRUCK STRIKER. NO ARM DRIFT. NO EDEMA PRESENT AT THIS TIME. STRONG PULSES. SAFETY MEASURES IN PLACE. CALL LIGHT IN REACH. WILL COTNINUE TO MONITOR.
--- NOTE | 2021-02-10 10:00 | NUR ---
PATIENT IS SITTING UP IN THE CHAIR PLAYING ON HIS PHONE, O2 SATS 90%, VAPO AND NON REBREATHER IS ON.
--- NOTE | 2021-02-10 12:00 | NUR ---
PATIENT IS DOING WELL ON VAPO AND NON REBREATHER, O2 SATS 91% AT THIS TIME.
--- NOTE | 2021-02-10 14:00 | NUR ---
PATIENT IS SITTING IN HIS CHAIR, APPEARS COMFORTABLE. DENIES PAIN OR DISCOMFORT AT THIS TIME.
--- NOTE | 2021-02-10 18:21 | NUR ---
PATIENT IS SATS 84/85% ON ONLY VAPO 40L AND 100%, WHILE EATING HIS DINNER.
--- NOTE | 2021-02-10 19:30 | NUR ---
SITTING UP IN CHAIR, WATCHING TV. ON VAPOTHERM 12/100% AND NRB, O2 SAT MID 90'S.
--- NOTE | 2021-02-10 20:30 | NUR ---
PATIENT TOLERATED BEING UP IN CHAIR WELL. RESP SHALLOW, OGLESBY. O2 SAT 93% SHIFT ASSESSMENT COMPLETED. PLUMBING ENGINEER SHOWS ST. VSS.
--- NOTE | 2021-02-10 21:00 | NUR ---
UP TO BSC, VOIDED AND MODERATE AMOUNT LIQUID BROWN STOOL. BACK TO BED WITH ASSIST.
--- NOTE | 2021-02-10 22:00 | NUR ---
VSS. SR ON MONITOR.
--- NOTE | 2021-02-10 23:00 | NUR ---
PATIENT HAS BEEN PLACED BACK ON CPAP BY RT-14/100% FIO2.
[2021-02-11] VITALS (16 sets, daily range): BP systolic 96–141; BP diastolic 57–83
--- NOTE | 2021-02-11 | NUR ---
RESTING WITH EYES CLOSED. O2 SAT 93%
--- NOTE | 2021-02-11 04:00 | NUR ---
SLEEPING SOUNDLY. VSS. TOLERATING CPAP WELL. SR ON MONITOR.
[2021-02-11 06:04] LABS: HEMOGLOBIN 14.5 g/dl (14.0-18.0); IMMATURE GRANULOCYTES 0.5 % (0.0-5.0); MEAN CELL VOLUME 90.3 fL CALC (80.0-100.0); MEAN CORPUSCULAR HGB 30.5 pG CALC (26.0-32.0); MEAN CORPUSCULAR HGB CONC 33.7 g/dL CAL (32.0-36.0); NEUT# 9.77 thou/uL (1.82-7.42); RED BLOOD COUNT 4.76 mill/uL (4.70-6.10); RED CELL DISTRI WIDTH 12.5 % (11.5-15.5)
[2021-02-11 06:23] LABS: ANION GAP 10 (6-22 (CALC)); BUN 16 mg/dL (9-20); BUN/CREATININE RATIO 30 (12-20 (CALC)); CARBON DIOXIDE 26 mmol/l (22-30); CHLORIDE 105 mmol/l (95-108); CREATININE 0.5 mg/dL (0.7-1.3); GFR > 60 ML/MIN (>=60 (CALC)); GFR FOR AFR.AMER. > 60 ML/MIN (>=60 (CALC)); POTASSIUM 4.3 mmol/l (3.5-5.1); SODIUM 136 mmol/l (137-146)
--- NOTE | 2021-02-11 06:27 | NUR ---
SLEPT WELL. MAINTAINED O2 SATS 91% OR GREATER ON CPAP. VSS. SR ON MONITOR.
--- NOTE | 2021-02-11 09:01 | NUR ---
PT HAD SIGNIFICANT DESAT DURING USING BEDSIDE COMMODE. SATS DROPPED TO 68%. PT SLOWLY RECOVERED FROM DESAT. SATS CURRENTLY 91% ON VAPOTHERM WITH NRB MASK.
--- NOTE | 2021-02-11 10:42 | NUR ---
PT SEEN AWAKE, ALERT, ORIENTED X 3. LUNGS CLEAR BUT DIMINISHED, NOW ON VAPOTHERM FOR BREAKFAST, HAD BEEN ON CPAP THROUGH THE NIGHT. PT REQUESTED TO SIT IN CHAIR, DESATTED AND RECOVERED EVENTUALLY.
--- NOTE | 2021-02-11 13:24 | NUR ---
PT CONTINUES OOB IN THE CHAIR, SATS IN THE LOW 90s, NO DISTRESS NOTED.
--- NOTE | 2021-02-11 15:36 | NUR ---
PT UPDATED ON KNOWN RESULTS, XRAYS SHOWN. PT REMAINS IN CHAIR WITH VAPOTHERM IN PLACE, SATS IN THE MID 90s.
--- NOTE | 2021-02-11 18:12 | NUR ---
IV SITE CHANGED TO RIGHT AC PER OUT OF DATE. PT TOLERATED WELL. PT CONTINUES ON VAPOTHERM.
--- NOTE | 2021-02-11 19:21 | NUR ---
PATIENT'S CALLED HERE, SHE PROVIDED PASSCODE. UPDATE PROVIDED.
--- NOTE | 2021-02-11 20:37 | NUR ---
PATIENT WAS SITTING IN RECLINER. IS AWAKE, ORIENTED X3. PREFERS TO BE SPOKEN IN [place]. DISCUSSED OF POC. DISCUSSED O2 SUPPORT, HAD LONG CONVERSTION WITH HIS REGARDING O2 SUPPORT. PATIENT USED THE URINAL, MARILYN/CLEAR RUINE. PATIENT ABLE TO TRANSFER TO BED, NOTED HE DOES GET SOB WITH EXERTION AND PATIENT DOES ADMIT HE IS SOB WITH EXERTION. NURSE ASSESSMENT PERFORMED. IV X1 INTACT, ANTIBIOTIC INFUSING NOW. SKIN INTACT/MOIST/WARM. ABLE TO SWALLOW HIS MEDICATIONS WITH WATER. ENCOURAGE PULMOCARE SHAKE IF HE CANNOT TOLERATE FOOD. ENCOURAGED FLUIDS. ENCOURAGED IS, PURSED LIP BREATHING. PATIENT IS ON VAPOTHERM AND DID HAVE NRB MASK ON 15 L/MIN, WHILE UP HE DESATTED TO 60'S. IS NOW LAYING PRONE, NRB MASK TAKEN OF AND ON VAPOTHERM 40 LITERS/100% FIO2, SPO2 IS 89%-92%. PATIENT REQUESTS XANAX WHEN DUE, WILL PROVIDE. CALL LIGHT WITHIN REACH. BP WNL. HEART RYTHM SR/ST, RATE 80'S-LOW 100S.
--- NOTE | 2021-02-11 21:24 | NUR ---
XANAX PROVIDED TO PATIENT. PATIENT AGREES TO BE PLACED ON CPAP AT 2200. PLACED NRB MASK BACK ON, SPO2 87% AT TIMES. PATIENT CONTINUES TO LAY PRONE.
--- NOTE | 2021-02-11 22:11 | NUR ---
rt was in room to place patient on cpap for bedtime. patient is in cpap 12, fio2 80%, spo2 93%. resp rate 30/shallow. patient lays with hob near 30 degrees. does not lay prone with cpap mask due to he reports he feels like he is suffocating.
--- NOTE | 2021-02-11 22:26 | NUR ---
patient requests to have cpap mask taken off to blow his nose. has dry bloody snot from his nose. desats to 85% with mask taken off.
[2021-02-12] VITALS (23 sets, daily range): BP systolic 102–152; BP diastolic 42–92
--- NOTE | 2021-02-12 00:59 | NUR ---
PATIENT RESTS WITH EYE SCLOSED, ON CPAP, SETTINGS UNCHANGED, SPO2 91%.
--- NOTE | 2021-02-12 04:45 | NUR ---
PATIENT WAS ASSISTED TO SIT ON SIDE OF BED TO USE URINAL. REMAINS ON CPAP, SPO2 LOW 80'S WITH EXERTION. NO COMPLAINTS OR NEEDS AT THIS TIME. CALL LIGHT WITHIN REACH.
[2021-02-12 05:38] LABS: HEMATOCRIT 42.8 % (39.0-50.0); HEMOGLOBIN 14.2 g/dl (14.0-18.0); IMMATURE GRANULOCYTES 0.5 % (0.0-5.0); MEAN CELL VOLUME 91.3 fL CALC (80.0-100.0); MEAN CORPUSCULAR HGB 30.3 pG CALC (26.0-32.0); MEAN CORPUSCULAR HGB CONC 33.2 g/dL CAL (32.0-36.0); NEUT# 9.57 thou/uL (1.82-7.42); RED BLOOD COUNT 4.69 mill/uL (4.70-6.10); RED CELL DISTRI WIDTH 12.5 % (11.5-15.5)
[2021-02-12 05:57] LABS: ANION GAP 11 (6-22 (CALC)); BUN 15 mg/dL (9-20); BUN/CREATININE RATIO 34 (12-20 (CALC)); CARBON DIOXIDE 25 mmol/l (22-30); CHLORIDE 105 mmol/l (95-108); CREATININE 0.5 mg/dL (0.7-1.3); GFR > 60 ML/MIN (>=60 (CALC)); GFR FOR AFR.AMER. > 60 ML/MIN (>=60 (CALC)); POTASSIUM 4.6 mmol/l (3.5-5.1); SODIUM 136 mmol/l (137-146)
--- NOTE | 2021-02-12 07:44 | NUR ---
PT TAKEN OFF CPAP AT THIS TIME, ON VAPOTHERM. BREAKFAST SERVED. PT WITH SHORTNESS OF BREATH WITH ACTIVITY, DESATS, RECOVERS WITH TIME.
--- NOTE | 2021-02-12 10:52 | NUR ---
PT DESATS WITH ACTIVITY, CONTINUES OOB IN CHAIR WITH SATS IN THE MID TO UPPER 80s.
--- NOTE | 2021-02-12 14:21 | NUR ---
PT UP IN CHAIR STILL, SATS IN THE LOW 90s. PT REFUSES BEDBATH.
--- NOTE | 2021-02-12 20:15 | NUR ---
PATIENT WAS SITTING IN RECLINER, WAS WEARING VAPOTHERM 40 LITERS AND 100% FIO2 AND HAD NRB MASK ON. RESP RATE 20'S, SPO2 88%-90% WHEN RESTING. PATIENT WAS ASSISTED TO WASH UP. CLEAN SOCKS FROM HOME PLACED ON. WITH EXERTION PATIENT DESATS TO HIGH 70'S AND LABORED BREATHING NOTED. PATIENT ABLE TO SWALLOW BEDTIME MEDICATIONS, XANAX AND SONATA PROVIDED. PATIENT WAS PLACED ON CPAP 14 AND FIO2 OF 85%, SPO2 88%-90%. PATIENT LAYS IN HIGH JURADO'S. NURSE ASSESSMENT PERFORMED. RAC IV INTACT, SALINE LOCKED. NO EDEMA NOTED. SKIN WARM/MOIST/INTACT. PATIENT REPORTS HE WAS ABLE TO DRINK PULMOCARE SHAKES FOR EVERY MEAL AND WAS ABLE TO EAT SOME DINNER. HR SR/ST, 90'S TO LOW 10'S WITH EXERTION. BP 140'S SYSTOLIC. PATIENT ABLE TO USE URINAL, SELF REPOSITIONS. CALL LIGHT WITHION REACH. NO COUGH NOTED.
--- NOTE | 2021-02-12 21:28 | NUR ---
PATIENT RESTS WITH EYES CLOSED. IS ON CPAP, SETTINGS UNCHANGED. SPO2 92%.
--- NOTE | 2021-02-12 22:51 | NUR ---
PATIENT RESTS WITH EYS CLOSED. NO ACUTE DISTRES SHOWN. SPO2 95%. RESP RATE 20
[2021-02-13] VITALS (20 sets, daily range): BP systolic 97–143; BP diastolic 60–83
--- NOTE | 2021-02-13 03:55 | NUR ---
PATIENT ABLE TO SIT ON SIDE OF BED TO USE URINAL, WHILE SITTING UP RESP RATE 38, SPO2 LOW 80'S. NOW LAYS BACK IN BED SPO2 91%, RESP RATE DOWN TO 30. NO OTHER NEEDS AT THIS TIME. CALL LIGHT WITHIN REACH.
--- NOTE | 2021-02-13 05:52 | NUR ---
PATIENT LAYS IN JURADO'S POSITION. RESTS WITH EYES CLOSED. ON CPAP, SETTINGS UNCHANGED. SPO2 95%
[2021-02-13 05:59] LABS: HEMATOCRIT 44.6 % (39.0-50.0); HEMOGLOBIN 14.7 g/dl (14.0-18.0); IMMATURE GRANULOCYTES 0.6 % (0.0-5.0); MEAN CELL VOLUME 91.4 fL CALC (80.0-100.0); MEAN CORPUSCULAR HGB 30.1 pG CALC (26.0-32.0); NEUT# 10.5 thou/uL (1.82-7.42); RED BLOOD COUNT 4.88 mill/uL (4.70-6.10); RED CELL DISTRI WIDTH 12.4 % (11.5-15.5)
[2021-02-13 06:29] LABS: ALBUMIN 2.7 g/dL (3.2-5.0); ALKALINE PHOSPHATASE 120 u/l (38-126); ANION GAP 12 (6-22 (CALC)); BILIRUBIN, TOTAL 0.4 mg/dL (0.0-1.4); BUN 16 mg/dL (9-20); BUN/CREATININE RATIO 33 (12-20 (CALC)); C-REACTIVE PROTEIN 3.8 mg/dL (0-0.9); CARBON DIOXIDE 26 mmol/l (22-30); CHLORIDE 105 mmol/l (95-108); CREATININE 0.5 mg/dL (0.7-1.3); GFR > 60 ML/MIN (>=60 (CALC)); GFR FOR AFR.AMER. > 60 ML/MIN (>=60 (CALC)); POTASSIUM 4.5 mmol/l (3.5-5.1); SGOT/AST 49 u/l (17-59); SODIUM 138 mmol/l (137-146); TOTAL PROTEIN 5.8 g/dL (6.3-8.2)
--- NOTE | 2021-02-13 07:49 | NUR ---
PT SEEN AT REST IN THE BED, ALERT AND ORIENTED X 3. LUNGS ARE CLEAR, BUT USING CPAP AT NIGHT, NOW SWITCHED OVER TO VAPOTHERM. SATS REMAIN LOW, MID 80s MAX. TO MONITOR.
--- NOTE | 2021-02-13 09:38 | NUR ---
pt alina ventura. in chair at bedside. nrb being utilised. special library librarian to monitor.
--- NOTE | 2021-02-13 11:46 | NUR ---
PT TO BSC THEN CHAIR. PT CONTINUES WITH SATS IN THE MID TO UPPER 80s.
--- NOTE | 2021-02-13 13:45 | NUR ---
no changes at this time. marine engineer cpvec to monitor.
--- NOTE | 2021-02-13 16:14 | NUR ---
PT BACK IN BED, RESTING PRONE, SATS 95%. PT APPEARED TIRED, WILL WEAR THE CPAP AT NIGHT.
--- NOTE | 2021-02-13 17:38 | NUR ---
PT UP TO BSC AND THEN SAT BACK IN CHAIR. SATS ARE 93% NOW.
--- NOTE | 2021-02-13 19:14 | NUR ---
SBAR RECEIVED FROM RONEY JENKINS. PATIENT OOB TO CHAIR WATCHING TELEVISION, TOLERATING WELL. CALL LIGHT WITHIN REACH.
--- NOTE | 2021-02-13 21:40 | NUR ---
PATIENT SWITCHED TO CPAP O2 @85% TOLERATING WELL SATURATION 94%.
[2021-02-14] VITALS (22 sets, daily range): BP systolic 104–149; BP diastolic 58–84
--- NOTE | 2021-02-14 00:25 | NUR ---
RESTING QUIETLY EYES CLOSED. NO DISTRESS NOTED. BED IN LOW POSITION, CALL LIGHT WITHIN REACH.
--- NOTE | 2021-02-14 04:45 | NUR ---
ASSISTED PATIENT TO BEDSIDE COMMODE. PATIENT BECAME TACHYCARDIC @ 104BPM AND SATURATION DECREASED TO 89%. AFTER TRANSFER BACK TO BED PATIENT RECOVERED WELL HR 88 AND SATURATION 92%. NO DISTRESS NOTED. CALL LIGHT IN REACH.
[2021-02-14 05:18] LABS: HEMATOCRIT 45.3 % (39.0-50.0); HEMOGLOBIN 15.4 g/dl (14.0-18.0); MEAN CELL VOLUME 90.1 fL CALC (80.0-100.0); MEAN CORPUSCULAR HGB 30.6 pG CALC (26.0-32.0); RED BLOOD COUNT 5.03 mill/uL (4.70-6.10); RED CELL DISTRI WIDTH 12.5 % (11.5-15.5)
[2021-02-14 05:39] LABS: ANION GAP 11 (6-22 (CALC)); BUN 16 mg/dL (9-20); BUN/CREATININE RATIO 34 (12-20 (CALC)); CARBON DIOXIDE 24 mmol/l (22-30); CHLORIDE 106 mmol/l (95-108); CREATININE 0.5 mg/dL (0.7-1.3); GFR > 60 ML/MIN (>=60 (CALC)); GFR FOR AFR.AMER. > 60 ML/MIN (>=60 (CALC)); SODIUM 136 mmol/l (137-146)
--- NOTE | 2021-02-14 08:51 | NUR ---
PT ATE BREAKFAST IN BED, THEN UP TO CHAIR. SATS IN THE MID 80s ON VAPOTHERM WITH NRB OVER IT.
--- NOTE | 2021-02-14 10:24 | NUR ---
pt in chair at bedside. nad. vss. c nrb. first sampler to monitor.
--- NOTE | 2021-02-14 16:09 | NUR ---
PT PROVIDED COUGH SYRUP REQUESTED, SEEN RESTING PRONE IN THE BED. PT WAS IN CHAIR FOR MUCH OF THE DAY THUS FAR. NAD.
--- NOTE | 2021-02-14 18:49 | NUR ---
PT RESTS IN BED, DORSAL POSITION, NO DISTRESS. SATS IN THE MID 80s.
--- NOTE | 2021-02-14 19:20 | NUR ---
SBAR RECEIVED FROM RONEY JENKINS.
--- NOTE | 2021-02-14 20:27 | NUR ---
PATIENT OOB TO CHAIR WATCHING TELEVISION. DENIES PAIN AT THIS TIME. NO DISTRESS NOTED. CALL LIGHT WITHIN REACH.
--- NOTE | 2021-02-14 21:34 | NUR ---
SWITCHED FROM VAPOTHERM/NON-REBREATHER COMBO TO CPAP AT 85% O2. PATIENT TOLERATING WELL AT 94% SATURATION. ASSISTED TO BED FROM CHAIR, TOLERATED WELL.
[2021-02-15] VITALS (21 sets, daily range): BP systolic 101–150; BP diastolic 62–90
--- NOTE | 2021-02-15 00:37 | NUR ---
RESTING COMFORTABLY IN BED EYES CLOSED. NO DISTRESS NOTED. CALL LIGHT WITHIN REACH.
--- NOTE | 2021-02-15 04:25 | NUR ---
PATIENT RESTING QUIETLY EYES OPEN. DENIES PAIN AT THIS TIME. NO DISTRESS NOTED. NO CONCERNS EXPRESSED. CALL LIGHT WITHIN REACH.
[2021-02-15 04:35] LABS: HEMATOCRIT 45.8 % (39.0-50.0); IMMATURE GRANULOCYTES 1.7 % (0.0-5.0); MEAN CELL VOLUME 92.5 fL CALC (80.0-100.0); MEAN CORPUSCULAR HGB 30.3 pG CALC (26.0-32.0); MEAN CORPUSCULAR HGB CONC 32.8 g/dL CAL (32.0-36.0); NEUT# 13.17 thou/uL (1.82-7.42); RED BLOOD COUNT 4.95 mill/uL (4.70-6.10); RED CELL DISTRI WIDTH 12.7 % (11.5-15.5)
--- NOTE | 2021-02-15 04:43 | NUR ---
PATIENT REQUESTS NURSE BACK INTO ROOM TO EXPRESS "ITCHING IN MY THROAT". ROBITUSSIN WITH CODEINE ADMINISTERED PER REQUEST.
[2021-02-15 05:01] LABS: ALBUMIN 2.8 g/dL (3.2-5.0); ALKALINE PHOSPHATASE 113 u/l (38-126); ANION GAP 12 (6-22 (CALC)); BILIRUBIN, TOTAL 0.5 mg/dL (0.0-1.4); BUN 15 mg/dL (9-20); BUN/CREATININE RATIO 33 (12-20 (CALC)); C-REACTIVE PROTEIN 4.6 mg/dL (0-0.9); CARBON DIOXIDE 24 mmol/l (22-30); CHLORIDE 104 mmol/l (95-108); CREATININE 0.5 mg/dL (0.7-1.3); GFR > 60 ML/MIN (>=60 (CALC)); GFR FOR AFR.AMER. > 60 ML/MIN (>=60 (CALC)); POTASSIUM 4.7 mmol/l (3.5-5.1); SGOT/AST 39 u/l (17-59); SODIUM 136 mmol/l (137-146); TOTAL PROTEIN 5.9 g/dL (6.3-8.2)
--- NOTE | 2021-02-15 08:00 | NUR ---
PATIENT IS A/O X3, ABLE TO MAKE NEEDS KNOWN TO STAFF, PATIENT HAS CPAP ON, WILL BE SWITCHINH TO VAPO AND NON REBREATHER TO EAT HIS MEALS. DENIES PAIN AT THIS TIME. 3MM PERRLA BRISK. NORMAL HEART SOUNDS. DIMINISHED LUNG SOUNDS. ACTIVE BOWEL SOUNDS. SOFT NON TENDER ABDOMEN. NO EDEMA PRESENT AT THIS TIME. STRONG PULSES. EQUAL AND STRONG HAND MUSIC INDUSTRY INTERNSHIP. NO ARM OR LEG DRIFTS NOTED. SAFETY MEASURES IN PLACE, CALL LIGHT IN REACH. WILL COTNINUE TO MONITOR PER HOSPITAL'S POCLIY.
--- NOTE | 2021-02-15 08:37 | NUR ---
psychiatric registered nurse helped rn place pt on hhfnc and into bedside chair. pt maintained spo2 >80. eating breakfast c nad. psychiatric registered nurse to monitor. placed running nrb at pt side and instructed if feeling sob then place nrb on as instruted and call for rn or rt. pt communicated understanding verbally.
--- NOTE | 2021-02-15 09:00 | NUR ---
RT HELPED ME GET HIM OFF CPAP AND ONTO VAPOTHERM. PATIENT WAS TOLERATING VAPO AND AMBULATING TO RECLINER O2 SATS WERE MAINTAING ABOVE 85%. RT STATED TO USE NON REBREATHER WHEN GET SOB WHILE EATING BREAKFAST. PATIENT STATES HE UNDERSTOOD.
--- NOTE | 2021-02-15 10:00 | NUR ---
PATIENT IS SITTING UP IN CHAIR WATCHING SHOWS ON HIS PHONE.
--- NOTE | 2021-02-15 11:07 | NUR ---
no changes at this time. pt in chair at bedside. nad. vss. dater assembler tpo monitor.
--- NOTE | 2021-02-15 12:00 | NUR ---
PATIENT IS SITTING UP IN CHAIR EATING HIS LUNCH.
--- NOTE | 2021-02-15 14:04 | NUR ---
PATIENT IS ON HIS PHONE SITTING ON THE CHAIR.
--- NOTE | 2021-02-15 16:00 | NUR ---
PATIENT IS SITTING UP IN CHAIR TALKING ON THE PHONE. OXYGEN SATS CONTINUE TO BE ABOVE 90%.
--- NOTE | 2021-02-15 18:00 | NUR ---
PATIENT IS SITTING UP WATCHING TV
--- NOTE | 2021-02-15 19:00 | NUR ---
REPORT RECEIVED FROM Blas CHILDRESS RN, CARE OF PT ASSUMED AT THIS TIME.
[2021-02-16] VITALS (21 sets, daily range): BP systolic 100–131; BP diastolic 58–87
--- NOTE | 2021-02-16 05:42 | NUR ---
Blas HENDRICKSON SWING RIDE OPERATOR IN ROOM COLLECTING AM LABS.
[2021-02-16 06:13] LABS: HEMATOCRIT 43.1 % (39.0-50.0); HEMOGLOBIN 14.2 g/dl (14.0-18.0); MEAN CELL VOLUME 91.9 fL CALC (80.0-100.0); MEAN CORPUSCULAR HGB 30.3 pG CALC (26.0-32.0); MEAN CORPUSCULAR HGB CONC 32.9 g/dL CAL (32.0-36.0); RED BLOOD COUNT 4.69 mill/uL (4.70-6.10); RED CELL DISTRI WIDTH 12.6 % (11.5-15.5)
[2021-02-16 06:19] LABS: ANION GAP 9 (6-22 (CALC)); BUN 17 mg/dL (9-20); BUN/CREATININE RATIO 36 (12-20 (CALC)); CARBON DIOXIDE 27 mmol/l (22-30); CHLORIDE 105 mmol/l (95-108); CREATININE 0.5 mg/dL (0.7-1.3); GFR > 60 ML/MIN (>=60 (CALC)); GFR FOR AFR.AMER. > 60 ML/MIN (>=60 (CALC)); MAGNESIUM 2.4 mg/dL (1.6-2.3); POTASSIUM 4.5 mmol/l (3.5-5.1); SODIUM 136 mmol/l (137-146)
--- NOTE | 2021-02-16 07:59 | NUR ---
WEANED PT FIO2 ON CPAP FROM .85 TO .7. PT ERLINDA WELL, THEN PLACED ON HHFNC AND IN CHAIR AT BEDSIDE S NRB AND PT ERLINDA WELL. NAD. PLANT TECHNICAL SPECIALIST TO MONITOR.
--- NOTE | 2021-02-16 08:00 | NUR ---
PATIENT IS SITTING UP IN CHAIR, BREAKFAST ON SIDE TABLE. ON JUST THE VAPOTHERM 40L, 100% TOLERATING IT WELL SATS GREATER THAN 88%. DENIES ANY PAIN OR SOB AT THIS TIME. 3MM PERRLA, BRISK. CLEAR SPEECH. CLEAR TO DIMINISHED LUNG SOUNDS. ACTIVE BOWEL SOUNDS. SOFT NON TENDER ABDOMEN. NO EDEMA PRESENT AT THIS TIME. NO ARM OR LEG DRIFTS. EQUAL AND STRONG HAND DIETARY AIDE COOK. STRONG PULSES. STATED HE FEELS BETTER TODAY, "DON'T NEED THE LITTLE MASK". LEFT HIM ON JUST VAPOTHERM O2 SATS GREATER THAN 85% WHILE EATING BREAKFAST. SAFETY MEASURES IN PLACE. CALL LIGHT IN REACH. WILL CONTINUE TO MONITOR PER HOSPITAL'S POLCIY.
--- NOTE | 2021-02-16 10:00 | NUR ---
tolerating vapotherm 40L and 100% well. sats maintain above 88%, meeting our goal.
--- NOTE | 2021-02-16 10:15 | NUR ---
pt c nad. sitting in chair at bedside. rn in room c pt. nad. vss. dynamic balancer to monitor.
--- NOTE | 2021-02-16 13:00 | NUR ---
PATIENT REQUESTED TO LAY PRONE, OXYGEN SATS ARE 90% OR GREATER.
--- NOTE | 2021-02-16 14:00 | NUR ---
PATIENT IS LAYING PRONE ON THE BED, 92% O2 SATS. TALKING ON THE PHONE.
--- NOTE | 2021-02-16 15:41 | NUR ---
PATIENT CONTINUES TO LAY PRONE, 95% ON VAPOTHERM. TOLERATING IT WELL, STATES HE IS COMFORTABLE NO SOB.
--- NOTE | 2021-02-16 18:00 | NUR ---
PATIENT IS SITTING UP IN CHAIR, EATING DINNER AND WATCHING TV.
--- NOTE | 2021-02-16 19:00 | NUR ---
REPORT RECEIVED FROM Blas CHILDRESS RN, CARE OF PT ASSUMED AT THIS TIME.
--- NOTE | 2021-02-16 20:25 | NUR ---
PT ASSISTED UP TO BSC BY Jean MANNING CNA.
--- NOTE | 2021-02-16 20:34 | NUR ---
PT [place] [facility] MANNING C[place]. Jean MANNING REPORTS BM.
[2021-02-17] VITALS (15 sets, daily range): BP systolic 110–195; BP diastolic 61–110
--- NOTE | 2021-02-17 05:30 | NUR ---
Blas HENDRICKSON TEMPLATE FITTER IN ROOM COLLECTING AM LABS.
[2021-02-17 06:10] LABS: HEMATOCRIT 43.4 % (39.0-50.0); HEMOGLOBIN 14.5 g/dl (14.0-18.0); IMMATURE GRANULOCYTES 2.4 % (0.0-5.0); MEAN CELL VOLUME 91.4 fL CALC (80.0-100.0); MEAN CORPUSCULAR HGB 30.5 pG CALC (26.0-32.0); MEAN CORPUSCULAR HGB CONC 33.4 g/dL CAL (32.0-36.0); NEUT# 11.23 thou/uL (1.82-7.42); RED BLOOD COUNT 4.75 mill/uL (4.70-6.10); RED CELL DISTRI WIDTH 12.7 % (11.5-15.5)
[2021-02-17 06:26] LABS: ALBUMIN 2.8 g/dL (3.2-5.0); ALKALINE PHOSPHATASE 109 u/l (38-126); ANION GAP 9 (6-22 (CALC)); BILIRUBIN, TOTAL 0.3 mg/dL (0.0-1.4); BUN 16 mg/dL (9-20); BUN/CREATININE RATIO 33 (12-20 (CALC)); C-REACTIVE PROTEIN 2.5 mg/dL (0-0.9); CARBON DIOXIDE 26 mmol/l (22-30); CHLORIDE 104 mmol/l (95-108); CREATININE 0.5 mg/dL (0.7-1.3); GFR > 60 ML/MIN (>=60 (CALC)); GFR FOR AFR.AMER. > 60 ML/MIN (>=60 (CALC)); POTASSIUM 4.4 mmol/l (3.5-5.1); SGOT/AST 37 u/l (17-59); SODIUM 135 mmol/l (137-146); TOTAL PROTEIN 5.9 g/dL (6.3-8.2)
--- NOTE | 2021-02-17 08:00 | NUR ---
PATIENT IS A/O X3, ABLE TO MAKE NEEDS KNOWN TO STAFF. DENIES PAIN AT THIS TIME. WHEN AMBULATING TO CHAIR FOR BREAKFAST HIS O2 SATS DROPPED TO 83%, DID USE NON REBREATHER FOR SOME RECOVERY. CURRENTLY BACK UP TO 87%. WATCHING TV DRINKING HIS MILK. LUNGS ARE CLEAR TO DIMINSHED AT BOTTOM BASES. ACTIVE BOWEL SOUNDS. STRONG, EQUAL HAND FURNITURE MAKER. NO ARM OR LEG DRIFT. NO EDEMA PRESENT AT THIS TIME. STRONG PULSES. WAS INFORMED AT SHIFT REPORT HE WAS ONLY ON VAPOTHERM DURING THE NIGHT, O2 SATS 88% OR GREATER. PATIENT STATED HE IS FEELING GOOD THIS MORNING. SAFETY MEASURES IN PLACE, CALL LIGHT IN REACH, WILL CONTINUE TO MONITOR PER HOSPITAL'S POLCIY.
--- NOTE | 2021-02-17 10:00 | NUR ---
PATIENT IS SITTING UP IN CHAIR.
--- NOTE | 2021-02-17 12:00 | NUR ---
PATIENT IS SITTING UP IN CHAIR WATCHING TV AND EATING HIS LUNCH.
--- NOTE | 2021-02-17 14:00 | NUR ---
PATIENT IS SITTING UP IN BED, NO SOB AT THIS TIME. O2 SATS ARE 90%.
--- NOTE | 2021-02-17 16:01 | NUR ---
PATIENT IS LAYING PRONE IN BED. OXYGEN SATS ARE 94%.
--- NOTE | 2021-02-17 18:00 | NUR ---
PATIENT IS SITTING UP IN CHAIR, EATING DINNER.
--- NOTE | 2021-02-17 19:45 | NUR ---
ASSESSMENT COMPLETE, PT SITTING UP IN THE RECLINER VERBALIZES NO COMPLAINTS AT THIS TIME, SR 82, O2 SATS 93%, DIMINISHED LUNG SOUNDS IN ALL WATERMAN, IV SITE CD&I, 20G RAC IV SALINE LOCKED, STRONG PEDAL PULSES, PT A&O X 3, SAFETY MEASURES IN PLACE, SIDE RAILS ARE UP, CALL LIGHT WITHIN REACH
--- NOTE | 2021-02-17 20:51 | NUR ---
PT ASSISTED BACK TO BED WITHOUT INCIDENT, PT TOLERATED WELL
--- NOTE | 2021-02-17 21:30 | NUR ---
PT RESTING IN BED, VERBALIZES NO COMPLAINTS
--- NOTE | 2021-02-17 22:13 | NUR ---
PT ASSISTED WITH REPOSITIONING, PT REQUESTED SOMETHING FOR SLEEP, MEDICATION GIVEN, PT REMINDED TO CALL FOR ASSISTANCES, CALL LIGHT WITHOUT REACH
--- NOTE | 2021-02-17 23:15 | NUR ---
RESP AT BEDSIDE CHECKING VAPO SETTINGS, PT RESTING, VS STABLE
[2021-02-18] VITALS (22 sets, daily range): BP systolic 100–156; BP diastolic 58–97
--- NOTE | 2021-02-18 00:47 | NUR ---
PT LAYING IN BED RESTING, VERBALIZES NO COMPLAINTS, CALL LIGHT WITHIN REACH
--- NOTE | 2021-02-18 01:20 | NUR ---
PT LAYING IN BED RESTING WITH EYES CLOSED, VS REMAIN STABLE, CALL SHI WITHIN REACH
--- NOTE | 2021-02-18 02:20 | NUR ---
PT LAYING IN BED, CALL SHI WITHIN REACH
--- NOTE | 2021-02-18 03:21 | NUR ---
VS STABLE, PT RESTING WITH EYES CLOSED, CALL SHI WITHIN REACH
--- NOTE | 2021-02-18 04:45 | NUR ---
LAB AT BEDSIDE
--- NOTE | 2021-02-18 05:11 | NUR ---
PT LAYING IN BED WATCHING TV, DENIES ANY PAIN OR SOB, PT REMINDED TO CALL FOR ASSISTANCE, CALL LIGHT WITHIN REACH
[2021-02-18 05:41] LABS: HEMATOCRIT 43.2 % (39.0-50.0); HEMOGLOBIN 14.5 g/dl (14.0-18.0); MEAN CELL VOLUME 92.5 fL CALC (80.0-100.0); MEAN CORPUSCULAR HGB CONC 33.6 g/dL CAL (32.0-36.0); RED BLOOD COUNT 4.67 mill/uL (4.70-6.10); RED CELL DISTRI WIDTH 12.8 % (11.5-15.5)
[2021-02-18 05:42] LABS: ANION GAP 8 (6-22 (CALC)); BUN 18 mg/dL (9-20); BUN/CREATININE RATIO 37 (12-20 (CALC)); CARBON DIOXIDE 27 mmol/l (22-30); CHLORIDE 104 mmol/l (95-108); CREATININE 0.5 mg/dL (0.7-1.3); GFR > 60 ML/MIN (>=60 (CALC)); GFR FOR AFR.AMER. > 60 ML/MIN (>=60 (CALC)); MAGNESIUM 2.4 mg/dL (1.6-2.3); POTASSIUM 4.4 mmol/l (3.5-5.1); SODIUM 134 mmol/l (137-146)
--- NOTE | 2021-02-18 07:48 | NUR ---
PT SEEN AWAKE, ALERT, ORIENTED X 3. PT ABLE TO MANEUVER HIMSELF OOB INTO CHAIR, EATING BREAKFAST AT THIS TIME.
--- NOTE | 2021-02-18 13:43 | NUR ---
PT ASSISTED THIS MORING WITH BEDPATH AND SHAVE, FEELS BETTER. PT'S SATS DROP INTO THE 70S WITH OXYGEN OFF FOR A LITTLE WHILE. OVERALL, PT FEELS BETTER.
--- NOTE | 2021-02-18 16:39 | NUR ---
PT AT REST IN THE BED, NO DISTRESS, NO COMPLAINTS.
--- NOTE | 2021-02-18 18:28 | NUR ---
PT CONTINUES AT 35L/90%, SATS 90%. NO CHANGE IN STATUS PT RESTS IN THE BED.
--- NOTE | 2021-02-18 20:52 | NUR ---
LATE ENTRY FOR 1900. SBAR REPORT RECEIVED FROM RONEY JENKINS. PATIENT OOB TO CHAIR WATCHING TV, TOLERATING WELL. NO DISTRESS NOTED. DENIES PAIN. CALL LIGHT WITHIN REACH.
[2021-02-19] VITALS (22 sets, daily range): BP systolic 98–155; BP diastolic 58–88
--- NOTE | 2021-02-19 00:32 | NUR ---
RESTING COMFORTABLY, NO DISTRESS NOTED. CALL LIGHT WITHIN REACH.
--- NOTE | 2021-02-19 04:38 | NUR ---
RESTING QUIETLY IN BED EYES CLOSED. NO DISTRESS NOTED. ON VAPOTHERM 35L/90% TOLERATING WELL, SATURATION 95%. CALL LIGHT WITHIN REACH.
[2021-02-19 05:52] LABS: HEMATOCRIT 45.5 % (39.0-50.0); HEMOGLOBIN 14.9 g/dl (14.0-18.0); IMMATURE GRANULOCYTES 2.2 % (0.0-5.0); MEAN CELL VOLUME 92.7 fL CALC (80.0-100.0); MEAN CORPUSCULAR HGB 30.3 pG CALC (26.0-32.0); MEAN CORPUSCULAR HGB CONC 32.7 g/dL CAL (32.0-36.0); NEUT# 11.84 thou/uL (1.82-7.42); RED BLOOD COUNT 4.91 mill/uL (4.70-6.10); RED CELL DISTRI WIDTH 12.9 % (11.5-15.5)
[2021-02-19 06:27] LABS: ALBUMIN 3.1 g/dL (3.2-5.0); ALKALINE PHOSPHATASE 101 u/l (38-126); ANION GAP 8 (6-22 (CALC)); BUN 18 mg/dL (9-20); BUN/CREATININE RATIO 35 (12-20 (CALC)); C-REACTIVE PROTEIN 2.5 mg/dL (0-0.9); CARBON DIOXIDE 25 mmol/l (22-30); CHLORIDE 106 mmol/l (95-108); CREATININE 0.5 mg/dL (0.7-1.3); GFR > 60 ML/MIN (>=60 (CALC)); GFR FOR AFR.AMER. > 60 ML/MIN (>=60 (CALC)); POTASSIUM 4.5 mmol/l (3.5-5.1); SGOT/AST 30 u/l (17-59); SODIUM 136 mmol/l (137-146); TOTAL PROTEIN 6.2 g/dL (6.3-8.2)
[2021-02-19 06:32] LABS: BILIRUBIN, TOTAL 0.5 mg/dL (0.0-1.4)
--- NOTE | 2021-02-19 08:47 | NUR ---
DR RODARTE AT BEDSIDE DISCUSSING POC
--- NOTE | 2021-02-19 09:07 | NUR ---
PT SITTING IN RECLINER. A&O X4. NO DISTRESS NOTED. PT REPORTS IMPROVEMENT WITH ACTIVITY. VAPOTHERM IN PLACE; 35L 90%, SUSTAINING 92%. CLEAR/DIMINISHED BREATH SOUNDS UPON AUSCULTATION. CURRENTLY SR ON MONITOR WITH A RATE OF 72 BPM. ACTIVE BOWEL SOUNDS X4 QUADRANTS. #20G RAC HEALTHY AND PATENT. STRONG PEDAL PULSES BILTAERALLY. NO OTHER NEEDS AT THIS TIME. ASSESSMENT COMPLETED. DISCUSSED POC. CALL LIGHT WITHIN REACH.
--- NOTE | 2021-02-19 10:44 | NUR ---
titrated hhfnc paramters as per pt margie and spo2. pt margie well at this time. rn informed. surgical scrub tech to monitor.
--- NOTE | 2021-02-19 10:45 | NUR ---
pt c nad. vss. licensed pharmacist to monitor. pt on 2l nc.
--- NOTE | 2021-02-19 12:00 | NUR ---
PT SITTING IN CHAIR, VAPO REMAINS 27L 90% SUSTAINING 91%. NO OTHER NEEDS AT THIS TIME.
--- NOTE | 2021-02-19 12:18 | NUR ---
weaned hhfnc paramter as margie and as per pt spo2. pt margie well at this time. resting comfortably in chair at bedside. nad. vss. rubber calender helper to monitor.
--- NOTE | 2021-02-19 14:10 | NUR ---
PT REMAINS SITTING IN THE CHAIR, VAPOTHERM REMAINS AT 27L 90%. O2 SUSTAINING 94%. NO OTHER NEEDS AT THIS TIME. CALL LIGHT WITHIN REACH.
--- NOTE | 2021-02-19 16:50 | NUR ---
IV CHANGED PER PROTOCOL. PT TOLERATED WELL. #22G LH STARTED BY THIS CLIENT MANAGER LARGE LAW X1 ATTEMPT.HEALTHY AND PATENT WITH GOOD BLOOD RETURN. #20G RAC REMOVED, INTACT UPON REMOVAL. VAPOTHERM REMAINS THE SAME SUSTAINING 94%. BM NOTED, MODERATE IN SIZE. NO OTHER NEEDS AT THIS TIME. CALL LIGHT WITHIN REACH.
--- NOTE | 2021-02-19 17:56 | NUR ---
PT EATING DINNER. REMAINS ON VAPOTHERM; UNCHANGED, O2 SUSTAINING 93%. NO OTHER NEEDS AT THIS TIME. CALL LIGHT WITHIN REACH.
--- NOTE | 2021-02-19 19:17 | NUR ---
SBAR RECEIVED FROM YOKO SIM. PATIENT OUT OF BED TO CHAIR WATCHING TV, TOLERATING WELL. ON VAPOTHERM 27L/90% SATURATION 94%. NO DISTRESS NOTED. DENIES PAIN AT THIS TIME. CALL LIGHT WITHIN REACH.
[2021-02-20] VITALS (23 sets, daily range): BP systolic 96–140; BP diastolic 54–83
--- NOTE | 2021-02-20 00:54 | NUR ---
RESTING QUIETLY EYES CLOSED. NO DISTRESS NOTED. CALL LIGHT IN REACH.
--- NOTE | 2021-02-20 04:48 | NUR ---
CONTINUE TO REST COMFORTABLY, EYES CLOSED. CALL LIGHT WITHIN REACH.
[2021-02-20 05:52] LABS: HEMOGLOBIN 14.4 g/dl (14.0-18.0); MEAN CELL VOLUME 93.2 fL CALC (80.0-100.0); MEAN CORPUSCULAR HGB 30.5 pG CALC (26.0-32.0); MEAN CORPUSCULAR HGB CONC 32.7 g/dL CAL (32.0-36.0); NEUT# 10.54 thou/uL (1.82-7.42); RED BLOOD COUNT 4.72 mill/uL (4.70-6.10); RED CELL DISTRI WIDTH 13.1 % (11.5-15.5)
[2021-02-20 06:00] LABS: ALKALINE PHOSPHATASE 102 u/l (38-126); ANION GAP 7 (6-22 (CALC)); BILIRUBIN, TOTAL 0.5 mg/dL (0.0-1.4); BUN 17 mg/dL (9-20); BUN/CREATININE RATIO 31 (12-20 (CALC)); CARBON DIOXIDE 26 mmol/l (22-30); CHLORIDE 105 mmol/l (95-108); CREATININE 0.5 mg/dL (0.7-1.3); GFR > 60 ML/MIN (>=60 (CALC)); GFR FOR AFR.AMER. > 60 ML/MIN (>=60 (CALC)); MAGNESIUM 2.4 mg/dL (1.6-2.3); POTASSIUM 4.3 mmol/l (3.5-5.1); SGOT/AST 34 u/l (17-59); SODIUM 134 mmol/l (137-146); TOTAL PROTEIN 6.1 g/dL (6.3-8.2)
--- NOTE | 2021-02-20 08:00 | NUR ---
PATIENT IS A/O X3, ABLE TO MAKE NEEDS KNOWN TO STAFF. APPEARS TO BE IN A GOOD MOOD. DENIES PAIN AT THIS TIME. 3MM PERRLA BRISK. CLEAR AND SLIGHTLY DIMINSHED ON LOWER BASES.ACTIVE BOWEL SOUNDS. SOFT, NON DISTENDED ABDOMEN, NON TENDER. STRONG EQUAL HAND FARM MACHINERY MECHANIC. NO ARM OR LEG DRIFTS. NO EDEMA PRESENT AT THIS TIME. STRONG PULSES. STATED THAT HE HAD NUMBNESS ON HIS RIGHT HAND, NOT PAINFUL. EDUCATED HIM TO ELEVATE IT BECAUSE IT MAY BE POSITIONAL. INFORMED DOCTOR ABOUT IT WELL. SAFETY MEASURES IN PLACE. PATIENT IS UP IN CHAIR EATING BREAKFAST. CALL LIGHT IN REACH. WILL COTNINUE TO MONITOR PER HOSPITAL'S POLICY.
--- NOTE | 2021-02-20 10:00 | NUR ---
PATIENT IS SITTING UP IN THE CHAIR
--- NOTE | 2021-02-20 12:00 | NUR ---
PATIENT IS SITTING UP IN CHAIR, WASHING HIMSELF UP, BED CHANGED TO CLEAN SHEETS.
--- NOTE | 2021-02-20 12:37 | NUR ---
DECREASED FIO2 TO 70%.
--- NOTE | 2021-02-20 14:00 | NUR ---
PATIENT SITTING IN THE CHAIR TALKING ON THE PHONE
--- NOTE | 2021-02-20 15:53 | NUR ---
REPORT GIVEN TO ICU NURSE CANDY. PATIENT STABLE.
--- NOTE | 2021-02-20 16:31 | NUR ---
O2 SAT ON 70% AND 25L IS 94%. DECREASED FLOW TO 20L.
--- NOTE | 2021-02-20 19:50 | NUR ---
RECEIVED REPORT FROM CANDY SIM.
--- NOTE | 2021-02-20 20:01 | NUR ---
PATIENT IS AWAKE IN CHAIR. ALERT AND ORIENTED X3. ABLE TO MAKE NEEDS KNOWN. RESPIRATIONS EVEN. ON VAPOTHERM 20L/70%. TOLERATED WELL. HR REG. ON MONITOR. BS+. DENIES PAIN. VAD S/L. ASSESSMENT COMPLETED AND CHARTED. CALL LIGHT WITHIN REACH.
--- NOTE | 2021-02-20 20:45 | NUR ---
Lovenox, metoprolol given as ordered. Prn Xanax given for mild anxiety and patient request, Sonata PRN given for sleep. Patient tolerated well. No acute distress observed. Bed in low position. Call light within reach.
--- NOTE | 2021-02-20 22:45 | NUR ---
PATIENT RESTING QUIETLY. VAPOTHERM AT CURRENT SETTINGS IN PLACE VIA N/C. NO DISTRESS OBSERVED. BED IN LOW POSITION. CALL LIGHT WITHIN REACH.
[2021-02-21] VITALS (24 sets, daily range): BP systolic 104–156; BP diastolic 57–94
--- NOTE | 2021-02-21 00:29 | NUR ---
PATIENT RESTING QUIETLY. NO ACUTE DISTRESS OBSERVED.
--- NOTE | 2021-02-21 02:06 | NUR ---
PATIENT'S TELEMETRY LEADS OFF, REPLACED, SR 67. PATIENT RESTING QUIETLY. NO ACUTE DISTRESS OBSERVED.
--- NOTE | 2021-02-21 04:09 | NUR ---
no changes noted.
--- NOTE | 2021-02-21 04:58 | NUR ---
A.M. labs drawn. No acute distress observed. Bed in low position. Call light within reach.
[2021-02-21 05:39] LABS: HEMOGLOBIN 14.5 g/dl (14.0-18.0); IMMATURE GRANULOCYTES 2.1 % (0.0-5.0); MEAN CELL VOLUME 92.4 fL CALC (80.0-100.0); MEAN CORPUSCULAR HGB 30.5 pG CALC (26.0-32.0); NEUT# 10.97 thou/uL (1.82-7.42); RED BLOOD COUNT 4.76 mill/uL (4.70-6.10); RED CELL DISTRI WIDTH 13.1 % (11.5-15.5)
[2021-02-21 06:00] LABS: ANION GAP 8 (6-22 (CALC)); BUN 15 mg/dL (9-20); BUN/CREATININE RATIO 27 (12-20 (CALC)); CARBON DIOXIDE 25 mmol/l (22-30); CHLORIDE 107 mmol/l (95-108); CREATININE 0.6 mg/dL (0.7-1.3); GFR > 60 ML/MIN (>=60 (CALC)); GFR FOR AFR.AMER. > 60 ML/MIN (>=60 (CALC)); POTASSIUM 4.2 mmol/l (3.5-5.1); SODIUM 136 mmol/l (137-146)
--- NOTE | 2021-02-21 07:00 | NUR ---
REPORT FROM THOMPSON SIM. ASSUMED PT CARE.
--- NOTE | 2021-02-21 07:33 | NUR ---
PT NOTED RESTING IN BED. ALERT AND ORIENTED X4. NO APPARENT DISTRESS NOTED. RESPIRATIONS EVEN AND UNLABORED. PT ON VAPOTHERM AT 20L/M @ 70% FIO2. PT DENIES ANY PAIN OR DISCOMFORT. FRESH ICE WATER PROVIDED. ASSESSMENT COMPLETE. VSS. DISCUSS POC. PT VERBALIZED UNDERSTANDING. CALL LIGHT WITHIN REACH. WILL CONTINUE TO MONITOR.
--- NOTE | 2021-02-21 09:31 | NUR ---
RT NOTIFIED PT SAT SUSTAINING 87% ON 20L/M @ 60%. RT AT BEDSIDE TO EVALUATE PT.
--- NOTE | 2021-02-21 09:46 | NUR ---
PT SITTING UP IN CHAIR SAT NOW 91% ON 20L/M @ 70% ON VAPOTHERM. WILL CONTINUE TO MONITOR.
--- NOTE | 2021-02-21 11:50 | NUR ---
PT SITTING UP IN CHAIR EATING LUNCH. NO APPARENT DISTRESS NOTED. CALL LIGHT WITHIN REACH. WILL CONTINUE TO MONITOR.
--- NOTE | 2021-02-21 13:25 | NUR ---
RT AT BEDSIDE. VAPOTHERM REMOVED AT THIS TIME. PT CURRENTLY ON 12L/M VIA HIGHFLOW NC. O2 SAT 92% NO APPARENT DISTRESS NOTED. PT SITTING UP IN BED. TALKING ON CELLPHONE. CALL LIGHT WITHIN REACH. WILL CONTINUE TO MONITOR.
--- NOTE | 2021-02-21 13:25 | NUR ---
PT IS NOW ON 12L HFNC SAT IS 92%
--- NOTE | 2021-02-21 16:44 | NUR ---
PT FAMILY DROPPED OFF BAG OF SNACKS. PROVIDED TO PT AT THIS TIME. PT NOTED SITTING UP IN CHAIR AT BEDSIDE. O2 @ 12L/M VIA HIGHFLOW NC. SAT 94%. PT REMAINS A&O X4. NO APPARENT DISTRESS NOTED. RESPIRATIONS EVEN AND UNLABORED. NO CURRENT WANTS OR NEEDS. CALL LIGHT WITHIN REACH. WILL CONTINUE TO MONITOR.
--- NOTE | 2021-02-21 17:08 | NUR ---
PT IS ON 12L HFNC SITTING IN CHAIR, SAT 96%
--- NOTE | 2021-02-21 20:56 | NUR ---
PATIENT IS AWAKE, ORIENTED X4. SITS IN RECLINER. IS ON HIGH FLOW NC AT 12-13 L/MIN, WEANED TO 11 L/MIN AND SPO2 93%. NURSE ASSESSMENT PERFORMED. PATIENT REPORTS HE DOES NOT BECOME SOB MUCH HE DID BEFORE. POC DISCUSSED. IS ENCOURAGED, PT REPORTS HE IS USING IT, REPORTS HE IS EATING BETTER NOW. IV INTACT, FLUSHES PROPERLY, SALINE LOCKED. SR ON TELEMETRY. BP WNL. WILL USE BSC AND CALL WHEN IS BACK IN BED.
--- NOTE | 2021-02-21 21:24 | NUR ---
PATIENT ABLE TO USE BSC AND MANEUVER TO AND FROM RECLINER AND BED. SPO2 WHEN UP AND MOVING 88% AND WHEN RESTING 93%. PATIENT NOW LAYS IN BED. ABLE TO TAKE ALL BEDTIME MEDICATIONS, REQUESTED XANAX, TYLENOL, AND SONATA TO BE ABLE TO SLEEP. PT REPORTS HE HAS BEEN ABLE TO SLEEP FINALLY ABOUT 3 HRS FOR AT LEAST TWO NIGHTS. PATIENT SINUS TACHYCARDIA AT LOW 100'S WHEN UP TO BSC, HR BACK TO NORMAL RANGES AT REST. CALL LIGHT WITHIN REACH.
[2021-02-22] VITALS (13 sets, daily range): BP systolic 94–141; BP diastolic 55–90
--- NOTE | 2021-02-22 00:06 | NUR ---
PATIENT LAYS IN JURADO'S POSITION. CONTINUES TO BE ON 11 L/MIN HIGH FLOW NC H. NO ACUTE DISTRESS SHOWN. SPO2 93%. SINUS RHYTHM, HR 60'S. CALL LIGHT WITHIN REACH.
--- NOTE | 2021-02-22 04:37 | NUR ---
PATIENT RESTS WITH EYES CLOSED. NO ACUTE DISTRESS SHOWN. REMAINS ON HIGH FLW NC 11 L/MIN H. SPO2 95%. CALL LIGHT WITHIN REACH.
[2021-02-22 05:54] LABS: HEMATOCRIT 44.6 % (39.0-50.0); HEMOGLOBIN 14.6 g/dl (14.0-18.0); MEAN CELL VOLUME 92.5 fL CALC (80.0-100.0); MEAN CORPUSCULAR HGB 30.3 pG CALC (26.0-32.0); MEAN CORPUSCULAR HGB CONC 32.7 g/dL CAL (32.0-36.0); NEUT# 9.96 thou/uL (1.82-7.42); RED BLOOD COUNT 4.82 mill/uL (4.70-6.10); RED CELL DISTRI WIDTH 13.3 % (11.5-15.5)
[2021-02-22 06:09] LABS: ANION GAP 8 (6-22 (CALC)); BUN 14 mg/dL (9-20); BUN/CREATININE RATIO 30 (12-20 (CALC)); CARBON DIOXIDE 26 mmol/l (22-30); CHLORIDE 108 mmol/l (95-108); CREATININE 0.5 mg/dL (0.7-1.3); GFR > 60 ML/MIN (>=60 (CALC)); GFR FOR AFR.AMER. > 60 ML/MIN (>=60 (CALC)); MAGNESIUM 2.4 mg/dL (1.6-2.3); POTASSIUM 4.3 mmol/l (3.5-5.1); SODIUM 136 mmol/l (137-146)
--- NOTE | 2021-02-22 06:10 | NUR ---
PATIENT AWAKENS EASILY WHEN SPOKEN TO. NO ACUTE DISTRESS. NO COMPLAINTS. URINAL EMTIED. COVID SWAB OBTAINED. O2 WEANED TO 10 L/MIN. WILL CONTINUE TO MONITOR.
--- NOTE | 2021-02-22 07:19 | NUR ---
PT IS ON 10L HFNC SAT IS 95%
--- NOTE | 2021-02-22 08:00 | NUR ---
patient is a/o x3, able to make needs known to staff. sitting up in chair eating breakfast at this time. denies pain at this time. patient stated "feeling a lot better". denies sob. 3mm perrla brisk. normal heart sounds. clear lung sounds throughout. uses his i.s often. 10 high flow nasal canal sats are 90%. active bowel sounds. soft, non distended, non tender abdomen. strong hand bookkeeping clerks supervisor. no arm or leg drifts. strong pulses. no edema present at this time. safety measures in place. call light in reach. will continue to monitor per hospital's policy.
--- NOTE | 2021-02-22 10:00 | NUR ---
PATIENT SITTING UP IN CHAIR WATCHING THE NEWS ON HIS PHONE.
--- NOTE | 2021-02-22 11:15 | NUR ---
PT IS ON 8L HFNC IN CHAIR, SAT IS 92%
--- NOTE | 2021-02-22 11:18 | NUR ---
PATIENT REPORT GIVEN OFF TO SVETLANA A NURSE ON [employer]. ROOM IS NOT CLEAN OF RIGHT NOW. WHEN ITS CLEAN SHE WILL CALL ME BACK.
--- NOTE | 2021-02-22 13:26 | NUR ---
PATIENT LEFT THE ICU, VITALS STABLE. 10L HIGHFLOW NC. MASK IS ON DURING TRANSFER.
--- NOTE | 2021-02-22 13:45 | NUR ---
PT ARRIVED ON FLOOR VIA WHEELCHAIR. PT ALERT AND ORIENTEDE X 4. PT DENIES ANY PAIN OR SOB. IV LEFT HAND INTACT AND PATENT. VS AND ASSESSMENT COMPLETE O2 THERAPY AT 9L CONTINUED. LUNGS CLEAR AND DIMINISHED. BREATHS EVEN AND NONLABORED. ABDOMEN SOFT ROUND NONTENDER. BOWEL SOUNDS ACTIVE. PERIPHERAL PULSES PALPABLE. SAFETY PRECAUTIONS ARE IN PLACE. CALL LIGHT WITHIN PATIENT REACH. WILL MONITOR PATIENT CLOSELY
--- NOTE | 2021-02-22 15:35 | NUR ---
Patient participated with PT intervention today. Patient did seated B LE AROM exercises doing hip flexion, hip adduction, hip abduction, hamstring curls, knee extension, and ankle pumps for 10 reps x 2 sets with verbal and tactile cuing to help decrease trick movements and fall risks. Patient participated with log rolling bed mobility and sit to stand push off transfer ADLs (1 to 3 reps) with verbal and tactile cuing to help decrease fall risks.
--- NOTE | 2021-02-22 16:35 | NUR ---
PT TRANSFERRED TO ICU BED 3. PT STABLE.
--- NOTE | 2021-02-22 20:00 | NUR ---
PATIENT IS SITTING UP IN CHAIR AT THIS TIME WITH O2 10L HIGH FLOW IN PLACE-O2 SAT IS AT 92-93% AT THIS TIME. AWAKE ALERT AND ORIENTEDX3. PATIENT WITH NO COMPLAINTS AT THIS TIME. STATES THAT HE IS GLAD TO BE OUT OF ICU AND IN THIS ROOM NOW. PATIENT WITH IV SITE INTACT. APPEARS HEALTHY AT THIS TIME. TELE MONITOR IN PLACE-LAST READING IS 110. LOPRESSOR TO BE GIVEN ORDERED. PATIENT REFUSED LOVENOX AT THIS TIME-EVEN AFTER EXPLANATION OF ITS INDICATIONS. PATIENT ON ISOLATION FOR COVID. PATIENT ENCOURGED TO USE IS Q1H W/A IN REPS OF 10-WILL REINFORCE. ENCOURAGED PATIENT TO PRONE WHEN POSSIBLE. VERBALIZES UNDERSTANDING. SAFETY PRECAUTIONS REINFORCED. CALL LIGHT IN REACH. WILL CONT TO MONITOR.
--- NOTE | 2021-02-22 22:00 | NUR ---
PATIENT REMAINS UP IN THE RECLINER-MEDICATED WITH XANAX FOR ANXIETY AND WITH SONATA FOR SLEEP. PROVIDED WITH APPLE JUICE PER PATIENT REQUEST. CALL LIGHT IN REACH. WILL CONT TO MONITOR.
[2021-02-23] VITALS: BP 110/64
--- NOTE | 2021-02-23 01:53 | NUR ---
PATIENT RESTING IN BED AT THIS TIME WITH EYES CLOSED. O2 AT 10 L HIGH FLOW IN PLACE. O2 SAT IS 92%. RESPS ARE EVEN AND UNLABORED. VOIDED 100CC OF YELLOW URINE IN URINAL. TELE MONITOR IN PLACE-LAST READING WAS SR-64. SALINE LOCK TO LEFT HAND INTACT. CALL LIGHT IN REACH. WILL CONT TO MONITOR.
[2021-02-23 04:00] VITALS: BP 101/64
--- NOTE | 2021-02-23 04:14 | NUR ---
PATIENT RESTING IN BED AT THIS TIME-EYES ARE CLOSED. RESPS ARE EVEN AND UNLABORED. O2 VIA NC AT 10L HIGH FLOW IN PLACE WITH O2 SAT OF 93%. TELE MONITOR IN PLACE-LAST READING WAS SR-65. SALINE LOCK TO LEFT HAND IN PLACE. CALL LIGHT IN REACH, WILL CONT TO MONITOR.
[2021-02-23 05:24] LABS: HEMOGLOBIN 14.4 g/dl (14.0-18.0); IMMATURE GRANULOCYTES 2.3 % (0.0-5.0); MEAN CELL VOLUME 93.2 fL CALC (80.0-100.0); MEAN CORPUSCULAR HGB 30.5 pG CALC (26.0-32.0); MEAN CORPUSCULAR HGB CONC 32.7 g/dL CAL (32.0-36.0); NEUT# 9.98 thou/uL (1.82-7.42); RED BLOOD COUNT 4.72 mill/uL (4.70-6.10); RED CELL DISTRI WIDTH 13.3 % (11.5-15.5)
[2021-02-23 05:51] LABS: ALBUMIN 3.1 g/dL (3.2-5.0); ALKALINE PHOSPHATASE 105 u/l (38-126); ANION GAP 8 (6-22 (CALC)); BILIRUBIN, TOTAL 0.5 mg/dL (0.0-1.4); BUN 14 mg/dL (9-20); BUN/CREATININE RATIO 27 (12-20 (CALC)); C-REACTIVE PROTEIN 1.2 mg/dL (0-0.9); CARBON DIOXIDE 26 mmol/l (22-30); CHLORIDE 106 mmol/l (95-108); CREATININE 0.5 mg/dL (0.7-1.3); GFR > 60 ML/MIN (>=60 (CALC)); GFR FOR AFR.AMER. > 60 ML/MIN (>=60 (CALC)); POTASSIUM 4.3 mmol/l (3.5-5.1); SGOT/AST 29 u/l (17-59); SODIUM 135 mmol/l (137-146); TOTAL PROTEIN 6.3 g/dL (6.3-8.2)
[2021-02-23 07:40] VITALS: BP 125/66
--- NOTE | 2021-02-23 07:40 | NUR ---
PT ALERT AND ORIENTED. COVID+ ON 10L HF NC. VITALS AND ASSESSMENT COMPLETED. S1 AND S2 HEARD UPON ASCULTATION. LUNGS CLEAR/DIMINISHED. PT SKIN WARM AND DRY,INTACT. PT BOWELS ACTIVE IN ALL 4 QUADRANTS. PEDAL PULSES STRONG BILATERALLY. PT IV INTACT AND HEALTHY. NO PAIN INDICATED. CALL LIGHT WITHIN REACH.
--- NOTE | 2021-02-23 11:19 | NUR ---
AT BEDSIDE DISCUSSING POC.
--- NOTE | 2021-02-23 11:22 | NUR ---
PT UP IN CHAIR. NO DISTRESS NOTED. CALL LIGHT WITHIN REACH.
[2021-02-23 12:26] VITALS: BP 116/59
--- NOTE | 2021-02-23 12:30 | NUR ---
TITRATED PT DOWN FROM 10L TO 8L. PT IS STATING BETWEEN 91-92. NO DISTRESS NOTED. CALL LIGHT WITHIN REACH.
--- NOTE | 2021-02-23 13:16 | NUR ---
PT'S O2 92%. NO DISTRESS NOTED. CALL LIGHT WITHIN REACH.
--- NOTE | 2021-02-23 14:22 | NUR ---
PT ON COUCH. NO DISTRESS NOTED. CALL LIGHT WITHIN REACH.
--- NOTE | 2021-02-23 15:20 | NUR ---
TITRATED PT TO 7L OF 02. PT TOLERATING WELL. PT O2 AT 93%.
--- NOTE | 2021-02-23 15:27 | NUR ---
Patient participated with PT intervention today. Patient carried out log rolling bed mobility (moving side to side for 1 to 2 reps) and sit to stand push off ADLs (from reclining chair to bed and to the sofa) with constant verbal and tactile cuing to help decrease trick movement and fall risks. Patient was also instructed on proper breathing pattern, taking in 3 segmental breaths followed by a prolonged exhalation, slowly working towards a 2 to 3 second inhalation followed by strong exhalation to complement return to proper breathing pattern. Patient also did gait training with use of oxygen, did 3 reps covering approximately 10 feet (total of 30 feet within the room with 1 to 2 rest periods) with minimal SOB. Patient also did B LE seated AROM exercises on the sofa doing hip flexion, hip adduction, hip abduction, hamstring curls, knee extension, and ankle pumps for 10 reps x 2 sets with verbal and tactile cuing to help decrease fall risks and trick movements.
--- NOTE | 2021-02-23 15:29 | NUR ---
PT UP IN BED. NO DISTRESS NOTED. CALL LIGHT WITHIN REACH.
[2021-02-23 16:51] VITALS: BP 111/65
[2021-02-23 19:00] VITALS: BP 127/75
--- NOTE | 2021-02-23 19:37 | NUR ---
PATIENT SITTING UP IN RECLINER AT THIS TIME-AWAKE ALERT AND ORIENTEDX3. PATIENT WITH O2 VIA NC HIGH FLOW AT 7L IN PLACE-O2 SATS 93. LUNGS ARE CLEAR/DIMINISHED. ONLY OCC NON-PRODUCIVE COUGH. PATIENT STATES THAT HE DID HAVE BM TODAY. DENIES ANY DIFFICULTY WITH URINATION. ABD IS SOFT WITH BS+. NO PERIPHERAL EDEMA NOTED. PULSES ARE PALPABLE. ON ISOLATION FOR COVID. TELE MONITOR IN PLACE-LAST READING WAS ST-LOW 100'S. SALINE LOCK TO LEFT HAND INTACT. SAFETY PRECAUTIONS REINFORCED. CALL LIGHT IN REACH. WILL CONT TO MONITOR.
--- NOTE | 2021-02-23 20:58 | NUR ---
PATIENT RESTING IN BED AT THIS TIME-O2 HIGH FLOW IN PLACE. MEDICATED WITH XANAX 0.25MG PO FOR ANXIETY AND WITH SONATA 5MG PO FOR SLEEP. PATIENT HAD HS SNACK OF JUICE AND CEREAL BAR. CALL YUN TINOCO IN REACH. WILL CONT TO JUAN RAMON.
[2021-02-24] VITALS: BP 118/66
--- NOTE | 2021-02-24 00:50 | NUR ---
PATIENT RESTING IN BED AT THIS TIME WITH EYES CLOSED. RESPS ARE EVEN AND UNLABORED. O2 VIA NC IN PLACE AT 7L HIGH FLOW WITH O2 SAT OF 92% AT THIS TIME. VS TAKEN AND RECORDED. TELE MONITOR IN PLACE WITH LAST READING BEING SR-75. SALINE LOCK TO LEFT HAND INTACT. CALL LIGHT IN REACH. WILL CONT TO MONITOR.
--- NOTE | 2021-02-24 02:19 | NUR ---
PATIENT RESTING IN BED WITH SHEET OVER HIS FACE. RESPS ARE EVEN AND UNLABORED. O2 VIA NC AT 7L HIGH FLOW IN PLACE. O2 SAT IS 98% AT THIS TIME. WILL CONT TO MONITOR.
[2021-02-24 04:00] VITALS: BP 112/69
--- NOTE | 2021-02-24 04:42 | NUR ---
PATIENT RESTING IN BED AT THIS TIME WITH O2 NC AT 7LPM HIGH FLOW IN PLACE. O2 SAT IS 92% AT THIS TIME. TELE MONITOR IN PLACE WITH LAST READING OF SR-68. SALINE LOCK TO LEFT HAND INTACT AND HEALTHY. PATIENT REFUSED SITE CHANGE LAST NIGHT-"STILL WORKS GOOD" PER PATIENT. STILL WITH GOOD BLOOD RETURN. VOIDING MARILYN URINE AT BEDSIDE. CALL LIGHT IN REACH. WILL CONT TO MONITOR.
[2021-02-24 07:20] VITALS: BP 109/62
--- NOTE | 2021-02-24 07:20 | NUR ---
PT AWAKE UPON ENTERING ROOM. COVID+ ON 7L OF O2 NC. PT IS ALERT AND ORIENTED. VITALS AND ASSESSMENT COMPLETED. S1 AND S2 HEARD UPON ASCULTATION. BOWELS ACTIVE IN ALL 4 QUADRANTS. SKIN WARM AND DRY, INTACT. PEDAL PULSES STRONG BILATERALLY. IV PATENT AND HEALTHY. NO PAIN INDICATED. CALL LIGHT WITHIN REACH.
--- NOTE | 2021-02-24 11:44 | NUR ---
PT IN CHAIR. NO DISTRESS NOTED. CALL LIGHT WITHIN REACH.
[2021-02-24 12:54] VITALS: BP 110/57
--- NOTE | 2021-02-24 14:42 | NUR ---
PT GOT SHOWER. SAYS HE FEELS MUCH BETTER. NO DISTRESS NOTED. CALL LIGHT WITHIN REACH.
--- NOTE | 2021-02-24 16:00 | NUR ---
pt in bed. no distress noted. call light within reach.
--- NOTE | 2021-02-24 17:32 | NUR ---
TITRATED PT DOWN TO 4L OF O2. PT O2 AT 95%. NO DISTRESS NOTED. CALL LIGHT WITHIN REACH.
[2021-02-24 17:33] VITALS: BP 110/66
[2021-02-24 20:29] VITALS: BP 116/57
--- NOTE | 2021-02-24 20:30 | NUR ---
PATIENT SITTING UP ON THE SIDE OF THE BED WITH O2 VIA NASAL CANNULA IN PLACE AT 4LPM. O2 SAT IS 89%-INCREASED TO 6L HIGH FLOW AND O2 SAT INCREASED TO 94%. PTIENT IS AWAKE ALERT AND ORIENTEDX3. PATIENT STATES THAT HE IS FEELING BETTER EVERY DAY. ANXIOUS TO BE DISCHARGED HOME. TELE MONITOR IN PLACE WITH LAST [id number]. LUNGS ARE CLEAR BUT DIMINISHED IN THE BASES. ENCOUARGED PATIENT TO CONT TO USE IS Q1H WHILE AWAKE IN REPS OF 10-VERBALIZES UNDERSTANDING OF THE STATES. ALSO ENCOURAGED PRONING WHEN PATIENT IS ABLE. ABD IS SOFT WITH ACTIVE BS. STATES THAT HE DID HAVE BM TODAY. DENIES ANY DIFFICULTY WITH URINATION. SAFETY PRECAUTIONS REINFORCED. CALL LIGHT IN REACH. WILL CONT TO MONITOR.
--- NOTE | 2021-02-25 | NUR ---
PATIENT RESTING IN BED AT THIS TIME WITH O2 VIA NC IN PLACE AT 6L HIGH FLOW. O2 SAT 93%. TELE MONITOR IN PLACE-LAST READING WAS SR-74. PATIENT WITH EYES CLOSED. RESP ARE EVEN AND UNLABORED. APPEARS SLEEPING. CALL LIGHT IN REACH. WILL CONT TO MONITOR.
[2021-02-25 00:16] VITALS: BP 109/67
[2021-02-25 04:00] VITALS: BP 111/58
--- NOTE | 2021-02-25 05:27 | NUR ---
PATIENT RESTING IN BED AT THIS TIME WITH EYES CLOSED. RESPS ARE EVEN AND UNLABORED. O2 NC AT 6L HIGH FLOW IN PLACE-O2 SAT IS 90% AT THIS TIME, TELE MONITOR IN PLACE-LAST READING SR-61. PATIENT REFUSED TO HAVE IV SITE TO LEFT HAND CHANGED LAST NIGHT-STATED THAT HE THINKS THAT HE IS GOING HOME TODAY AND IT IS WORKING FINE. SITE IS HEALTHY WITH GOOD BLOOD RETURN, NO SWELLING OR REDNESS NOTED. CALL LIGHT IN REACH. WILL CONT TO MONITOR.
[2021-02-25 05:33] LABS: HEMATOCRIT 43.3 % (39.0-50.0); HEMOGLOBIN 14.2 g/dl (14.0-18.0); IMMATURE GRANULOCYTES 2.5 % (0.0-5.0); MEAN CELL VOLUME 93.5 fL CALC (80.0-100.0); MEAN CORPUSCULAR HGB 30.7 pG CALC (26.0-32.0); MEAN CORPUSCULAR HGB CONC 32.8 g/dL CAL (32.0-36.0); NEUT# 7.93 thou/uL (1.82-7.42); RED BLOOD COUNT 4.63 mill/uL (4.70-6.10); RED CELL DISTRI WIDTH 13.7 % (11.5-15.5)
[2021-02-25 06:21] LABS: ALBUMIN 3.2 g/dL (3.2-5.0); ALKALINE PHOSPHATASE 109 u/l (38-126); ANION GAP 10 (6-22 (CALC)); BILIRUBIN, TOTAL 0.4 mg/dL (0.0-1.4); BUN 16 mg/dL (9-20); BUN/CREATININE RATIO 30 (12-20 (CALC)); C-REACTIVE PROTEIN 0.7 mg/dL (0-0.9); CARBON DIOXIDE 24 mmol/l (22-30); CHLORIDE 107 mmol/l (95-108); CREATININE 0.5 mg/dL (0.7-1.3); GFR > 60 ML/MIN (>=60 (CALC)); GFR FOR AFR.AMER. > 60 ML/MIN (>=60 (CALC)); POTASSIUM 4.2 mmol/l (3.5-5.1); SGOT/AST 25 u/l (17-59); SODIUM 137 mmol/l (137-146); TOTAL PROTEIN 6.4 g/dL (6.3-8.2)
[2021-02-25 07:16] VITALS: BP 115/63
--- NOTE | 2021-02-25 07:16 | NUR ---
PT AWAKE WHEN ENTERED ROOM. ALERT AND ORIENTED. COVID+ ON 6L OF HF NC. VITALS AND ASSESSMENT COMPLETED AT THIS TIME. S1 AND S2 HEARD UPON ASCULTATION. BOWELS ACTIVE IN ALL 4 QUADRANTS. SKIN WARM AND DRY. PEDAL PULSES EQUALLY STRONG BILATERALLY. IV PATENT AND HEALTHY. NO DISTRESS NOTED. CALL LIGHT WITHIN REACH.
[2021-02-25 10:20] VITALS: BP 103/55
--- NOTE | 2021-02-25 12:00 | NUR ---
PT IN CHAIR. NO DISTRESS NOTED. CALL LIGHT WITHIN REACH.
[2021-02-25] MEDS ORDERED: DECADRON2 MG PO (13:17)
[2021-02-25] MEDS ORDERED: LOPRESSOR 550 MG/TAB PO (13:19)
[2021-02-25] MEDS ORDERED: VENTOLIN HFA108 MCG IN (13:20)
[2021-02-25] MEDS ORDERED: ASPIRIN 81 LOW81 MG PO (13:20)
[2021-02-25] MEDS ORDERED: PROTONIX40 M2 PO (13:21)
--- NOTE | 2021-02-25 13:49 | NUR ---
Patient tolerated PT intervention today. Patient carried out log rolling bed mobility and sit to stand push off transfer ADLs (1 to 3 reps) with occasional verbal and tactile cuing to help decrease trick movements and fall risks as patient prepares for discharge. Patient did gait ADLs with supervision covering 10 feet x 2 reps on level surfaces. Patient also did B LE seated exercises doing: hip flexion, hip adduction, hip abduction, hamstring curls, knee extension, and ankle pumps for 15 reps x 2 sets with occasional verbal and tactile cuing to help decrease trick movements and fall risks as patient prepares to be discharged.
--- NOTE | 2021-02-25 14:25 | NUR ---
PT IN BED. AWAITING DISCHARGE. NO DISTRESS NOTED. CALL LIGHT WITHIN REACH.
[2021-02-25 14:50] VITALS: BP 110/65
--- NOTE | 2021-02-25 16:00 | NUR ---
PT WAITING OXYGEN TANK FOR DISCHARGE. EXPLAINED TO PT AND CALLED [facility] FOR ETA AND [facility] HEARD BACK.
[2021-02-25 19:00] VITALS: BP 121/70
--- NOTE | 2021-02-25 20:00 | NUR ---
PHYSICAL ASSESMENT COMPLETE. PT CURRENTLY DENIES PAIN OR DISCOMFORT. SCHEDULED MEDICATIONS AND PRN MEDICATION ADMINISTERED, SEE E-MAR. PT DENIES ANY NEEDS AT THIS TIME. PTS HOME 02 HAS NOT ARRIVED. PLAN OF CARE REVIEWED, PT DENIES QUESTIONS, VERBALIZES UNDERSTANDING. ITEMS WITHIN REACH, BED LOCKED IN LOW POSITION W/ BEDRAILS UP X2. CALL SHI WITHIN REACH, AGREES TO CALL PRN.
--- NOTE | 2021-02-25 21:42 | NUR ---
PT WAS DISCHARGED ON DAY SHIFT BUT HOME OXYGEN HAS NOT ARRIVED. NOTIFIED DR THAT PT HAS BEEN GIVEN HIS NIGHTTIME MEDS AND IS REQUESTING TO STAY OVERNIGHT TRYING TO OBTAIN HOME SCRIPTS WOULD BE IMPOSSIBLE NOW.
--- NOTE | 2021-02-25 21:51 | NUR ---
DR HARDWICKWLEDGED MY TEXT AND AGREED THAT THE PT WILL STAY THE NIGHT AND LEAVE WHEN HIS O2 ARRIVES.
[2021-02-26] VITALS (7 sets, daily range): BP systolic 101–129; BP diastolic 59–69
--- NOTE | 2021-02-26 | NUR ---
PT LAYING IN BED WITH EYES CLOSED, APPEARS TO BE SLEEPING, APPEARS COMFORTABLE AND IN NO DISTRESS. RESPIRATIONS REGULAR AND UNLABORED. ITEMS REMAIN WITHIN REACH, CALL SHI REMAINS WITHIN REACH. BED REMAINS LOCKED AND IN LOW POSITION WITH BEDRAILS UP X2. WILL CONTINUE TO MONITOR.
--- NOTE | 2021-02-26 03:54 | NUR ---
PT RESTING IN BED, NO SIGNS OF DISTRESS NOTED, RESP EVEN AND UNLABORED. PT VOICES NO NEEDS OR COMPLAINTS AT THIS TIME. CALL LIGHT IN REACH, CONTINUE TO MONITOR.
--- NOTE | 2021-02-26 09:00 | NUR ---
BEDSIDE REPORT RECEIVED AT CHANGE OF SHIFT. PT IS NOTED TO HAVE BEEN DISCHARGED 02/25/21 BUT IS WAITING ON HOME OXYGEN. CASE MANAGEMENT STATED SHOULD ARRIVE BY 1 PL. ASSESMENT PERFORMED, PT GIVEN DAILY MEDS. WILL CONTINUE TO MONITOR. D/C COMPLETED AND SIGNED PREV.
--- NOTE | 2021-02-26 13:53 | NUR ---
Patient participated with PT intervention today. Patient carried out log rolling bed mobility and sit to stand push off transfer ADLs (did 1 to 4 reps each ADL) with occasional verbal and tactile cuing to help improve functional weight bearing ADL capability, tolerance, and stability as patient prepares for discharge from hospital. Patient also did B LE seated AROM exercises doing hip flexion, hip adduction, hip abduction, hamstring curls, knee extension, and ankle pumps for 15 reps x 2 sets with occasional verbal and tactile cuing to help decrease trick movements and fall risks.
--- NOTE | 2021-02-26 17:01 | NUR ---
PT LYING IN BED AWAKE NO COMPLAINTS. INSTRUCTED TO HAVE CALL O2 COMPLANY. MULTIPLE ATTEMPS MADE BY CM TODAY. LISA ZEPEDA STATED O2 SUPPLY CO STATED PT IS ON LIST AND THEY ARE NOT SURE WHEN THEY WILL BE ARRIVING, THEY WILL GET THERE WHEN THEY GET THERE. PT AWARE. WILL CONTINUE TO MONITOR.
--- NOTE | 2021-02-26 17:34 | NUR ---
SPPOKE WITH 02 SUPPLY [employer] STATED HAND PACKAGER HAS ONE MORE VISIT AND THEN HEADED TO HOSPITAL AND PATIENT HOME.
--- NOTE | 2021-02-26 19:30 | NUR ---
PATIENT SITTING UP IN RECLINER AT T HIS TIME AWAITING DISCHARGE HOME. ALERT AND ORIENTEDX3 ANXIOUS TO GO HOME. PAIN IV SITE TO LEFT HAND WAS D/C'ED WITH CATH INTACT. TELE MONITOR WAS REMOVED. HOME O2 APPLIED VIA NASAL CANNULA AT 2LPM. DISCHARGE PAPERS WERE GIVEN AND PATIENT WAS DISCHARGED HOME WHEELCHAIR WITH HOME O2. IS WAITING DOWNSTAIRS FOR PATIENT.
--- NOTE | 2021-02-26 19:45 | NUR ---
Discharge instructions given. Patient verbalizes understanding of same. Discharged in fair condition via Wheelchair to Home with spouse. All belongings sent with pt. PATIENT DISCHARGED HOME WITH HOME O2 TANK AT 2LPM.
== END 2021-02-26 19:20 | disposition home or self-care (01) | DRG 177 ==
LOC: ED 18:43 → ED-I 20:55 → ED 21:01 → ICU 21:03 → ED-I 21:03 → ICU 02-05 06:58 → MS2 02-22 13:25
PROVIDERS: Internal Medicine; Nurse Practitioner; ADMIT Hospitalist; ATTEND Internal Medicine
PROC: XW033E5 Introduction of Remdesivir Anti-infective into Peripheral Vein, Percutaneous Approach, New Technology Group 5 (ICD-10-PCS; principal; 2021-02-03)
PROC: 5A09357 Assistance with Respiratory Ventilation, Less than 24 Consecutive Hours, Continuous Positive Airway Pressure (ICD-10-PCS; 2021-02-08)
DX: U07.1 COVID-19 (principal); J12.82 Pneumonia due to coronavirus disease 2019; J96.01 Acute respiratory failure with hypoxia; Z68.41 Body mass index [BMI] 40.0-44.9, adult; E66.2 Morbid (severe) obesity with alveolar hypoventilation; K76.0 Fatty (change of) liver, not elsewhere classified; R00.0 Tachycardia, unspecified
CPT/HCPCS: J1650; Q9967

== ENCOUNTER 2022-04-27 10:39 | Emergency (ER) | payer OTHER ==
[~2022-04-27] VITALS: Ht 160 cm; Wt 109.1 kg
[~2022-04-27 10:39] MED LIST changes: +ASPIRIN 81 LOW81 MG PO; +DECADRON2 MG PO; +LOPRESSOR 550 MG/TAB PO; +PROTONIX40 M2 PO; +VENTOLIN HFA108 MCG IN
[2022-04-27 10:44] VITALS: BP 135/83
[2022-04-27 11:31] VITALS: BP 113/75
[2022-04-27 12:00] VITALS: BP 123/74
[2022-04-27] MEDS ORDERED: IBUPROFEN600 MG PO (12:34)
[2022-04-27] MEDS ORDERED: FLEXERIL5 M1 PO (12:34)
[2022-04-27] MEDS ORDERED: VOLTAREN1%GEL TOP (12:34)
[2022-04-27 12:38] VITALS: BP 123/74
== END 2022-04-27 12:41 | disposition home or self-care (01) | DRG 556 ==
LOC: ED 10:39
DX: M25.512 Pain in left shoulder (principal)

== ENCOUNTER 2024-06-25 14:06 | Emergency (ER) | payer OTHER ==
[~2024-06-25] VITALS: Ht 160 cm; Wt 92.0 kg
[~2024-06-25 14:06] MED LIST changes: +FLEXERIL5 M1 PO; +IBUPROFEN600 MG PO; +VOLTAREN1%GEL TOP
[2024-06-25 14:18] VITALS: BP 149/92
[2024-06-25] MEDS ORDERED: PREDNISONE50 MG PO (14:29)
[2024-06-25] MEDS ORDERED: ALL DAY10 MG PO (14:29)
[2024-06-25] MEDS ORDERED: MOMETASONE50 MCG/ACT NAB (14:29)
[2024-06-25 14:31] VITALS: BP 136/72
[2024-06-25 14:45] VITALS: BP 116/66
[2024-06-25 14:56] VITALS: BP 116/66
== END 2024-06-25 14:56 | disposition home or self-care (01) | DRG 156 ==
LOC: ED 14:06
DX: R09.81 Nasal congestion (principal)